=== PATIENT | male | born 1955 | race Caucasian/White ===

== ENCOUNTER 2023-03-26 15:51 | Inpatient (IN) | payer MEDICARE, SELFPAY ==
[2023-03-26] VITALS (12 sets, daily range): BP systolic 119–132; BP diastolic 72–85; PULSE 77–92; RESP 16–28; TEMP 36.6–36.8; O2SAT 71–94; BMI 47.0; BMI 46.7
--- NOTE | 2023-03-26 16:26 | EKG12_ITS ---
Test Reason : DYSRHYTHMIA Blood Pressure : / mmHG Vent. Rate : 077 BPM Atrial Rate : 077 BPM P-R Int : 142 ms QRS Dur : 100 ms QT Int : 410 ms P-R-T Axes : 025 015 043 degrees QTc Int : 463 ms Normal sinus rhythm Normal ECG Confirmed by PAULA KEENAN, JAYLON ([id number]), food editor NATALI DEVLIN ([id number]) on 03/27/2023 9:24:29 AM Referred By: PRASHANT Confirmed By:JAYLON MITCHELL MD
[2023-03-26] MEDS: Ipratropium/Albuterol Sulfate 3 ML AMPUL.NEB INHALATION (16:41)
--- NOTE | 2023-03-26 17:04 | EDS_ITS ---
HPI History of Present Illness Chief Complaint: Shortness of Breath Informant: patient Onset/Context/Timing Onset: Weeks (1) Context: gradual Timing: Waxes and wanes Quality: Positive for Dyspnea on exertion Worsened by: Exertion Relieved by: Rest Associated Symptoms cough and clear sputum; Negative for rhinorrhea, post nasal drip, ear pain, fever, sore throat, subjective, chills or sweats Chest Pain: Positive for None Narrative Narrative: Patient presents with shortness of breath that has been getting worse over the past week. Patient states it is gradually getting worse. Patient states it has been waxing and waning. Patient states it is worse with exertion. Patient states it is better with oxygen. Patient admits to a cough with some slight clear sputum production. Patient denies any fevers or chills. Patient denies any chest pain. Patient does admit to some mild swelling to his legs. PE Risk Factors: Negative for Cancer, OCP + Smoking + > 35, Prior DVT or PE, Recent immobilization, Recent surgery or Recent travel PFSH PFS Medical History HTN (hypertension) Hyperlipidemia Morbid obesity Seizure disorder Snuff user Home Medications phenytoin sodium extended 100 mg capsule (Dilantin Extended) 600 mg PO DINNER 12/23/16 [History Last Taken 12/22/16] atorvastatin 10 mg tablet 10 mg PO DAILY 03/26/23 [History Last Taken Unknown] furosemide 20 mg tablet 20 mg PO QODAY 03/26/23 [History Last Taken Unknown] furosemide 40 mg tablet 40 mg PO QODAY 03/26/23 [History Last Taken Unknown] lisinopril 20 mg-hydrochlorothiazide 25 mg tablet 1 tab PO DAILY 03/26/23 [History Last Taken Unknown] Allergy/AdvReac Type Severity Reaction Status Date / Time No Known Allergies Allergy Verified 12/23/16 19:43 Family History (Updated 03/26/23 @ 21:[address] Jessie Barahona MD) Mother Cancer Father Cancer Surgical History (Updated 03/26/23 @ 21:[address] Jessie Barahona MD) No history of previous surgery Surgical History no surgical history no surgical history Social History (Updated 03/26/23 @ 21:[address] Jessie Barahona MD) household members: none Smoking Status: Never smoker Smokeless tobacco user: snuff and other alcohol intake: never substance use type: does not use ROS ROS ED Constitutional Constitutional ED: Denies chills or fever(s) Eyes Eyes: Denies blurry vision or change in vision ENT ENT ED: Denies rhinorrhea or sore throat Cardiovascular Cardiovascular: Denies chest pain or palpitations Respiratory/Chest Respiratory/Chest: Reports cough, dyspnea and sputum Gastrointestinal Gastrointestinal: Denies nausea or vomiting Genitourinary Genitourinary ED: Denies dysuria or hematuria Musculoskeletal Musculoskeletal: Denies back pain or neck pain Integumentary Denies abscess or rash Neurologic Neurologic: Denies headache(s) or weakness Allergic/Immunologic Allergic/Immunologic ED: Denies mouth swelling or urticaria EXAM Physical Exam Const Vital Signs: 03/26/23 15:52 03/26/23 15:51 03/26/23 16:12 Temperature 97.9 F Temperature Source Temporal Pulse Rate 88 Respiratory Rate 23 H Respiratory Effort Normal Respiratory Depth Normal Respiratory Pattern Tachypnea Blood Pressure 126/75 H Blood Pressure Mean 92 Pulse Ox 71 90 Oxygen Delivery Method Room Air Nasal Cannula Room Air Oxygen Flow Rate (L/min) 3 03/26/23 15:53 03/26/23 16:28 03/26/23 16:51 Temperature 97.9 F Temperature Source Temporal Pulse Rate 88 80 Respiratory Rate 28 H 16 Respiratory Effort Respiratory Depth Respiratory Pattern Blood Pressure 126/75 H Blood Pressure Mean 92 Pulse Ox 94 91 Oxygen Delivery Method Non-Rebreather Venturi Mask Venturi Mask Oxygen Flow Rate (L/min) 03/26/23 16:41 03/26/23 17:00 03/26/23 18:00 Temperature Temperature Source Pulse Rate 92 78 Respiratory Rate 24 H 16 16 Respiratory Effort Respiratory Depth Respiratory Pattern Tachypnea Blood Pressure 119/79 Blood Pressure Mean 92 Pulse Ox 93 Oxygen Delivery Method Venturi Mask Oxygen Flow Rate (L/min) Positive well nourished and well developed General Appearance ED: well developed HEENT Reports moist mucous membranes Neck supple and no JVD Resp normal respiratory effort Auscultation: diminished lung sounds diffuse Cardio regular rate and regular rhythm GI normal to inspection, nondistended, normoactive bowel sounds and non-tender Palpation: soft Extremity normal to inspection General Extremety ED: Yes edema; Negative for tenderness General Extremity: edema bilateral lower extremity Details: mild Neuro oriented x3, CN's II-XII intact bilaterally and no sensory deficits noted Sensorium / Orientation: alert Motor Exam: strength 5/5 throughout Psych mental status grossly normal Skin no rashes or lesions noted MDM MDM MDM Narrative Medical decision making narrative: Differential diagnosis includes pneumonia, pneumothorax, cardiac dysrhythmia, cardiac ischemia, congestive heart failure, COVID-19 infection, influenza infection, and pulmonary embolism. Chest x-ray will be obtained to assess for pneumonia and congestive heart failure. EKG will be obtained to assess for cardiac dysrhythmia and cardiac ischemia. CBC will be obtained to assess for leukocytosis and anemia. Basic metabolic profile will be obtained to assess for electrolyte abnormality and renal function. BNP will be obtained to assess for congestive heart failure. High-sensitivity troponin will be obtained to assess for cardiac ischemia. D-dimer will be obtained to assess for pulmonary embolism. COVID-19 rapid antigen will be obtained to assess for COVID-19 infection. Influenza A and influenza B antigens will be obtained to assess for influenza infection. Lab Data Attestation: I reviewed the patient's lab results. Lab results narrative: CBC was reviewed. There is a mild leukocytosis of 11.8. D-dimer was reviewed and was elevated at 2.11. Basic metabolic profile was reviewed and was essentially within normal limits. High-sensitivity troponin was reviewed and was slightly elevated at 102. BNP was reviewed and was normal at 17.4. COVID- 19 rapid antigen was reviewed and was negative. Influenza A and influenza B antigens were reviewed and were negative. Labs: Laboratory Results - last 24 hr 03/26/23 03/26/23 16:50 18:50 WBC 11.8 H RBC 5.45 Hgb 16.0 Hct 50.2 MCV 92.1 MCH 29.4 MCHC 31.9 L RDW Std Deviation 50.4 H RDW Coeff of Theodore 15.0 H Plt Count 181 MPV 11.0 Immature Gran % (Auto) 1.200 H Neut % (Auto) 74.7 H Lymph % (Auto) 12.7 L Webster % (Auto) 9.6 Eos % (Auto) 1.2 Baso % (Auto) 0.6 Absolute Neuts (auto) 8.8 H Absolute Lymphs (auto) 1.49 Nucleated RBC % 0 D-Dimer Quant (PE/DVT) 2.11 H* Sodium 137 Potassium 3.4 L Chloride 102 Carbon Dioxide 31.0 Anion Gap 4 L BUN 22 H Creatinine 1.07 Estim Creat Clear Calc 70.12 Est GFR (MDRD) Af Amer 89 Est GFR (MDRD) Non-Af 73 BUN/Creatinine Ratio 20.6 H Glucose 141 H Lactic Acid 0.9 Calcium 9.0 Troponin I High Sens 102 H B-Natriuretic Peptide 17.4 Radiography Diagnostic Testing: Clinical Impression(s) from Imaging Studies Chest X-Ray 03/26/23 17:10 IMPRESSION: Possible left lower lobe infiltrate Electronically Signed: Tee Che MD at 17:33 EDT Reading Location ID and State: [facility] / [place] , Service support , Chest CTA 03/26/23 17:45 IMPRESSION: Multiple pulmonary emboli. No right heart failure. Left lower lobe consolidation and bilateral groundglass infiltrates.. Spiculated nodules right middle lobe. Recommend follow-up to resolution. Electronically Signed: Tee Che MD at 18:31 EDT Reading Location ID and State: [facility] / [place] , Service support , ADDENDUM: 03/26/23 1841 IMPRESSION: Multiple pulmonary emboli. No right heart failure. Left lower lobe consolidation and bilateral groundglass infiltrates.. Spiculated nodules right middle lobe. Recommend follow-up to resolution. N.B. : The above Results were Read Back by Tee Che MD to Sp Vasquez, , DO, and understanding confirmed on 03/26/2023 18:34:09 (ET). Electronically Signed: Tee Che MD at 18:31 EDT Reading Location ID and State: [facility] / [place] , Service support , [place] and lateral chest x-ray was obtained. There are 2 views. On my independent interpretation, lung munson show a possible left lower lobe infiltrate there is normal cardiac silhouette. Bony thorax is normal. Radiologist also interpreted the x-ray and agrees. CTA of the chest was obtained because of the elevated D-dimer. There are multiple bilateral pulmonary emboli. There is no evidence of right heart failure. There is also a left lower lobe consolidation and bilateral groundglass infiltrates. There are also spiculated nodules in the right middle lobe. This was interpreted by the radiologist and was also independently reviewed by myself. EKG Initial EKG: Attestation: I personally reviewed and interpreted this EKG as follows: Interpretation: Sinus Rhythm (77) and No Acute Injury Pattern Comments: EKG was obtained. On my independent interpretation, it showed a normal sinus rhythm with a rate of 77. MO interval, QRS interval, and QTc intervals were all normal. [place] was normal. There are no acute ST or T wave changes. Prior EKG tracings: available for review Prior: Unchanged Treatment and Re-Evaluation :: Blood cultures were obtained and are pending. Serum lactate was obtained and is pending. Patient was started on Rocephin and Zithromax. Patient was also started on Eliquis. Patient was advised of the need for hospitalization due to his hypoxia. Patient is agreeable with this. Case will be discussed with the hospitalist for admission. Critical Care Time Critical Care Time: Yes Critical care time (excluding procedures): 30-74 minutes (32), Including time spent:, Discussing w/Patient &/or Family/Research Program Internship, Discussing w/Consultants, Arranging Admission or Transfer and Performing Direct Patient Care at Bedside Discharge Plan Dx/Rx/DC Orders Clinical Impression: Hypoxia, Pulmonary emboli, Pneumonia Disposition Disposition: Acute Care [facility]
--- NOTE | 2023-03-26 17:10 | RAD_ITS ---
STUDY: X-RAY CHEST REASON FOR EXAM: Male, 67 years old. Dyspnea TECHNIQUE: Frontal and lateral views of the chest. COMPARISON: December 23, 2016 FINDINGS: Elevated left hemidiaphragm. Possible left basilar infiltrate. The lungs are clear and expanded. There is no demonstrated pleural abnormality. Normal size heart. Normal mediastinum and abdoul. Normal visualized pulmonary arteries. Normal visualized aortic arch and descending thoracic aorta. Normal visualized thoracic spine. Normal visualized ribs, clavicles, and shoulders. There is no demonstrated abnormality of the visualized soft tissue structures of the upper abdomen. RAD/Chest PA and Lateral IMPRESSION: Possible left lower lobe infiltrate Electronically Signed: Tee Che MD at 17:33 EDT ,
[2023-03-26 17:12] LABS: Absolute Lymphocyte Count 1.49 X10^3/uL (0.83-4.51); Absolute Neutrophil Count 8.8 X10^3/uL (2.0-7.7); Basophil# 0.07 X10^3/uL; Basophil% 0.6 % (0-1); Eosinophil# 0.14 X10^3/uL; Eosinophils% 1.2 % (0-5); Hematocrit 50.2 % (40-54); Lymphocyte # 1.49 X10^3/ul (0.83-4.51); Lymphocyte % 12.7 % (19-41); Mean Corp Hgb Conc 31.9 g/dL (32-36); Mean Corpuscular Hgb 29.4 pg (27.0-32.0); Mean Corpuscular Volume 92.1 fL (80-94); Monocyte# 1.13 X10^3/uL; Monocyte% 9.6 % (0-10); NRBC Flagged by Analyzer 0 % (0-5); Neutrophil # 8.79 X10^3/uL (2.7-7.7); Neutrophil % 74.7 % (47-70); Platelet Count 181 K/mm3 (150-450); RBC Distribution Width SD 50.4 fl (35.1-43.9); Red Blood Count 5.45 M/mm3 (4.6-6.2); White Blood Count 11.8 K/mm3 (4.4-11.0)
[2023-03-26 17:19] LABS: D-Dimer Quantitative (DVT/PE) 2.11 FEU/ug/m (0.27-0.49)
[2023-03-26 17:28] LABS: Anion Gap 4 (5-15); BUN 22 mg/dL (7-18); BUN/Creat Ratio 20.6 RATIO (10-20); Chloride 102 mmol/L (98-107); Creatinine, Serum 1.07 mg/dL (0.70-1.30); EST Glomerular Filtration Rate 73 mL/min (>60); Est Glom Filt Rate - Afr Amer 89 mL/min (>60); Estimated Creatinine Clearance 70.12 ml/min; Glucose 141 mg/dL (74-106); Potassium 3.4 mmol/L (3.5-5.1); Sodium Level 137 mmol/L (136-145); Troponin-I HS 102 pg/mL (3.0-78.0)
[2023-03-26 17:43] LABS: BNP,B-Type NATRIURETIC PEPTIDE 17.4 pg/mL (0-100)
--- NOTE | 2023-03-26 17:45 | CT_ITS ---
We are attempting to reach an attending provider to discuss findings. An addendum with communication details will be sent when the communication is complete. STUDY: CTA CHEST REASON FOR EXAM: Male, 67 years old. Elevated D-dimer RADIATION DOSAGE (If Supplied By Facility): CTDIvol = ( 19.79 ) mGy, DLP = ( 586.16 ) mGycm TECHNIQUE: The examination was performed with the intravenous administration of IV 100mL [id number]-370. Post-processing of the angiographic images was performed, with multiplanar reformation and 3D reconstruction. Individualized dose optimization techniques were used for this CT. COMPARISON: Chest x-ray from today.. FINDINGS: Occlusive filling defects right lower lobar and segmental branches of the pulmonary arteries. Filling defects also noted in the right middle lobar and segmental branches. Filling defects within the lingular segmental branches. Normal enhancement of the bilateral peripheral pulmonary arteries. No evidence of right ventricular strain. Normal thoracic aorta and visualized great vessels. There is no demonstrated aortic dissection. Normal heart and pericardium. Normal mediastinum. Normal hilar regions. Normal visualized trachea and bronchi. Left lower lobe consolidation. Mild bilateral groundglass interstitial infiltrates. Spiculated multinodular lesion right middle lobe measuring up to 9 mm on image #[id number]. Normal pulmonary parenchyma. Normal pleura. Normal chest wall structures. Normal osseous structures. Normal visualized upper abdomen. CT/CTA Chest W/WO Contrast IMPRESSION: Multiple pulmonary emboli. No right heart failure. Left lower lobe consolidation and bilateral groundglass infiltrates.. Spiculated nodules right middle lobe. Recommend follow-up to resolution. Electronically Signed: Tee Che MD at 18:31 EDT ,
[2023-03-26] MEDS: APIXABAN 5 MG TABLET 10 MG PO ×2 (18:59→23:15)
[2023-03-26 19:25] LABS: Lactic Acid 0.9 mmol/L (0.4-1.9)
--- NOTE | 2023-03-26 19:37 | PCM.HP.STD ---
HPI - General General Date of Admission: 03/26/23 Date of Service: 03/26/23 Chief Complaint: Dyspnea, cough, worsening. HPI Narrative The patient is a 67 y/o M w/ PMHx: Morbid obesity, Seizure disorder, HTN, HLD, Chronic snuff usage who presents to the [facility] ED on 03/26/23 with history of persistently worsening shortness of breath over the last week although has been waxing and waning, worse with exertion and exposure to the heat, improved with oxygen supplementation with a cough productive of some white clear sputum with no fevers or chills with mild lower extremity swellings but no specific pleuritic pain or chest pain however given worsening prompted eventual ED evaluation. He denies any recent ill contacts. He was vaccinated with the Moderna COVID series but not boosters although he reports when he was vaccinated he did not have any side effects and mounted no fever. He states aside from his dyspnea he really has not been feeling poorly. He states he is extremely active. He denies any marked snoring, gasping for air or periods of apnea while sleeping. Work-up in the ED included T97.9, heart rate 88, BP 126/75, respiratory rate 23, initially 71% on room air transition to a nonrebreather initially 94% on nonrebreather currently on a Ventimask noted to be 91%, CBC with WC 11.8, hemoglobin 16, platelet 181 with left shift, D-dimer 2.11, BMP with potassium 3.4, BUN/creatinine 22/1.07, glucose 141, troponin 102, BNP 17.4, rapid SARS COVID and influenza antigens negative, blood culture x2 pending per ED, chest x-ray with possible left lower lobe infiltrate, CTA chest with multiple pulmonary emboli with no evidence of right heart failure with a left lower lobe consolidation and bilateral groundglass infiltrates, spiculated nodules in the right middle lobe, EKG sinus rhythm with nonspecific changes with no acute evidence of ischemia. In the ED patient ministered DuoNeb therapy, apixaban 10 mg p.o. x1, Rocephin IV as well as azithromycin IV. [facility] Medical History HTN (hypertension) Hyperlipidemia Morbid obesity Seizure disorder Snuff user Home Medications phenytoin sodium extended 100 mg capsule (Dilantin Extended) 600 mg PO DINNER 12/23/16 [History Last Taken 12/22/16] atorvastatin 10 mg tablet 10 mg PO DAILY 03/26/23 [History Last Taken Unknown] furosemide 20 mg tablet 20 mg PO QODAY 03/26/23 [History Last Taken Unknown] furosemide 40 mg tablet 40 mg PO QODAY 03/26/23 [History Last Taken Unknown] lisinopril 20 mg-hydrochlorothiazide 25 mg tablet 1 tab PO DAILY 03/26/23 [History Last Taken Unknown] Allergy/AdvReac Type Severity Reaction Status Date / Time No Known Allergies Allergy Verified 12/23/16 19:43 Family History (Updated 03/26/23 @ 21:[address] Jessie Barahona MD) Mother Cancer Father Cancer Surgical History (Updated 03/26/23 @ 21:[address] Jessie Barahona MD) No history of previous surgery Surgical History no surgical history Social History (Updated 03/26/23 @ 21:[address] Jessie Barahona MD) household members: none Smoking Status: Never smoker Smokeless tobacco user: snuff and other alcohol intake: never substance use type: does not use ROS ROS Narrative Admission Review of Systems: CONSTITUTIONAL: No weight loss, fever, chills, + weakness or fatigue. HEENT: Eyes: No visual loss, blurred vision, double vision or yellow sclerae. Ears, Nose, Throat: No hearing loss, sneezing, congestion, runny nose or sore throat. SKIN: No rash or itching, lesions, wounds. CARDIOVASCULAR: No chest pain, chest pressure or chest discomfort, palpitations, edema, orthopnea, syncopal events. RESPIRATORY: + shortness of breath, cough without marked sputum. No wheezing, hemoptysis. GASTROINTESTINAL: + anorexia. No nausea, vomiting or diarrhea, abdominal pain, melena, BRBPR. GENITOURINARY: No dysuria, frequency, urgency or retention. NEUROLOGICAL: + History of seizure disorder. No headache, dizziness, syncope, paralysis, ataxia, numbness or tingling in the extremities, focal weakness, change in bowel or bladder control. MUSCULOSKELETAL: + muscle, back pain, joint pain or stiffness. HEMATOLOGIC: No anemia, bleeding or bruising. LYMPHATICS: No enlarged nodes. No history of splenectomy. PSYCHIATRIC: No history of depression or anxiety. ENDOCRINOLOGIC: No reports of sweating, cold or heat intolerance. No polyuria or polydipsia. ALLERGIES: No history of asthma, hives, eczema or rhinitis. Vital Signs Vital Signs Vital Signs: 03/26/23 15:52 03/26/23 15:51 03/26/23 16:12 Temperature 97.9 F Temperature Source Temporal Pulse Rate 88 Respiratory Rate 23 H Respiratory Effort Normal Respiratory Depth Normal Respiratory Pattern Tachypnea Blood Pressure 126/75 H Blood Pressure Mean 92 Pulse Ox 71 90 Oxygen Delivery Method Room Air Nasal Cannula Room Air Oxygen Flow Rate (L/min) 3 03/26/23 15:53 03/26/23 16:28 03/26/23 16:51 Temperature 97.9 F Temperature Source Temporal Pulse Rate 88 80 Respiratory Rate 28 H 16 Respiratory Effort Respiratory Depth Respiratory Pattern Blood Pressure 126/75 H Blood Pressure Mean 92 Pulse Ox 94 91 Oxygen Delivery Method Non-Rebreather Venturi Mask Venturi Mask Oxygen Flow Rate (L/min) 03/26/23 16:41 03/26/23 17:00 03/26/23 18:00 Temperature Temperature Source Pulse Rate 92 78 Respiratory Rate 24 H 16 16 Respiratory Effort Respiratory Depth Respiratory Pattern Tachypnea Blood Pressure 119/79 Blood Pressure Mean 92 Pulse Ox 93 Oxygen Delivery Method Venturi Mask Oxygen Flow Rate (L/min) Weight Weight: 327 lb 8 oz Body Mass Index (BMI) 47.0 Physical Exam Narrative Physical Examination: General: Awake, alert, oriented x 3 and cooperative, seated upright in ED bed in no apparent distress despite having low oxygenation on a Ventimask, appears comfortable. Skin: Normal color, normal turgor, no icterus, no cyanosis except occasional staged ecchymoses/abrasion. HEENT: AT/NC, EOMI, PERRLA, moderately dry MM, Ventimask in place, no carotid bruits, difficult to assess JVD secondary to very thickened neck Lungs: Extremely diminished, greater bases, appropriate effort, no evidence of any respiratory distress, no rales, ronchi or wheezing. Heart: Currently regular rate and rhythm; no gallop, rub audible. Abdomen: Soft, morbidly obese, NTTP, difficult to assess distention given habitus but patient denies, mildly hyperactive BS, difficult to assess HSM given habitus. Extremities: No cyanosis, no clubbing, very minimal ankle nonpitting edema. Neurological: Patient awake, alert, oriented as noted, cognitive function intact; pupils equally reactive to light and accommodation, cranial nerves II-XII grossly normal, moving all 4 extremities, no focal deficits, strength moderately to severely globally decreased secondary to acute presentation Psychiatric: Affect appears flat, fatigued, initially mildly irritable but improved through evaluation, no acute evidence of depressive or anxiety feelings. Results Lab / Micro Data 03/26/23 16:50 03/26/23 16:50 Labs: Laboratory Results - last 24 hr 03/26/23 16:50: WBC 11.8 H, RBC 5.45, Hgb 16.0, Hct 50.2, MCV 92.1, MCH 29.4, MCHC 31.9 L, RDW Std Deviation 50.4 H, RDW Coeff of Theodore 15.0 H, Plt Count 181, MPV 11.0, Immature Gran % (Auto) 1.200 H, Neut % (Auto) 74.7 H, Lymph % (Auto) 12.7 L, Mercer % (Auto) 9.6, Eos % (Auto) 1.2, Baso % (Auto) 0.6, Absolute Neuts (auto) 8.8 H, Absolute Lymphs (auto) 1.49, Nucleated RBC % 0, D-Dimer Quant (PE/DVT) 2.11 H*, Sodium 137, Potassium 3.4 L, Chloride 102, Carbon Dioxide 31.0, Anion Gap 4 L, BUN 22 H, Creatinine 1.07, Estim Creat Clear Calc 70.12, Est GFR (MDRD) Af Amer 89, Est GFR (MDRD) Non-Af 73, BUN/Creatinine Ratio 20.6 H, Glucose 141 H, Calcium 9.0, Troponin I High Sens 102 H, B-Natriuretic Peptide 17.4 03/26/23 18:50: Lactic Acid 0.9 Micro: Microbiology 03/26/23 16:55 Nasal Secretion SARS-CoV-2 & FLU Antigen (Rapid) - Final Radiology Impression Chest X-Ray 03/26/23 17:10 IMPRESSION: Possible left lower lobe infiltrate Electronically Signed: Tee Che MD at 17:33 EDT , Chest CTA 03/26/23 17:45 IMPRESSION: Multiple pulmonary emboli. No right heart failure. Left lower lobe consolidation and bilateral groundglass infiltrates.. Spiculated nodules right middle lobe. Recommend follow-up to resolution. Electronically Signed: Tee Che MD at 18:31 EDT Reading Location ID and State: [address] [place] [address] , Service support , ADDENDUM: 03/26/23 1841 IMPRESSION: Multiple pulmonary emboli. No right heart failure. Left lower lobe consolidation and bilateral groundglass infiltrates.. Spiculated nodules right middle lobe. Recommend follow-up to resolution. N.B. : The above Results were Read Back by Tee Che MD to Sp Vasquez DO, DO, and understanding confirmed on 03/26/2023 18:34:09 (ET). Electronically Signed: Tee Che MD at 18:31 EDT Reading Location ID and State: [facility] / [place] , Service support , Assessment & Plan Assessment/Plan (1) Pneumonia: PLAN: Plan The patient is a 67 y/o M w/ PMHx: Morbid obesity, Seizure disorder, HTN, HLD, Chronic snuff usage who presents to the [facility] ED on 03/26/23 with history of persistently worsening shortness of breath over the last week although has been waxing and waning, worse with exertion and exposure to the heat, improved with oxygen supplementation with a cough productive of some white clear sputum with no fevers or chills with mild lower extremity swellings but no specific pleuritic pain or chest pain however given worsening prompted eventual ED evaluation. He denies any recent ill contacts. #1. Acute hypoxic respiratory failure, multifactorial secondary to left lower lobe consolidation and bilateral groundglass infiltrates/pneumonia as well as concurrent bilateral pulmonary emboli as noted #2: Will admit to PCU, maintain on oxygen with wean as tolerated to room air, continue ATC duonebs, PRN albuterol, maintained on IV Azithromycin and IV Rocephin, HOB, IS parameters w/ pending sputum cultures, full respiratory viral panel, COVID PCR and urine antigens. Bld cx x 2 obtained in the ED. #2. Dyspnea, chest pain secondary to Pulmonary Embolism in addition to #1: We will maintain on cardiac telemetry. Will obtain ECHO although no marked cardiac strain noted however significant presentation and troponin is elevated although BNP is normal., BNP and BL LE DVT US. In the setting of acute infection #1, full respiratory viral panel as well as COVID PCR requested as there has been an increase in COVID diagnosis recently and certainly this could lead to bilateral pulmonary emboli. Given already dosed oral apixaban in the ED will continue at this time. Patient is of note is on phenytoin, has a level 2 interaction and can decrease the effectiveness of anticoagulation, thus will need to continue with this in mind. #3. Indeterminate cardiac enzyme, likely stress response with acute hypoxia as noted: EKG in ED sinus rhythm with nonspecific changes with no evidence of ischemia, initial trop 102. Will place on a monitored bed to assure no acute myocardial infarction with serial cardiac enzymes and EKGs. Echocardiogram requested to be cautious. Magnesium level requested. FLP in AM. ASA, NG, morphine. #4. Incidental spiculated nodule right middle lobe: Patient with notable spiculated nodule in the right lower lobe measuring 9 mm, noted to be multinodular, will need to follow-up with pulmonary medicine and further evaluation. #5. Hypokalemia: Admission K+ 3.4, magnesium level requested, supplementation given, repeat level in AM. #6. Hyperglycemia: Likely stress response however given acute presentation to be cautious and medical history will obtain hemoglobin A1c and maintain on Accu-Cheks with insulin sliding scale if notable with transition to ADA diet. #7. Seizure disorder: We will continue patient home phenytoin regimen, level requested to be cautious. #8. Hypertension: Continue home regimen including Lasix, lisinopril, hydrochlorothiazide although will transition doses to tomorrow and attempt to aggressively hydrate given acute infectious presentation and low threshold to hold these further as needed, PRN hydralazine. #9. Hyperlipidemia: We will continue patient on statin therapy. #10. Chronic snuff tobacco usage: Encourage snuff tobacco cessation, RT consultation pending, NR supplementation if requested. #11. Morbid Obesity: Weight loss and lifestyle changes encouraged. #12. DVT prophylaxis: Patient already administered oral apixaban in the ED, will continue however will need to ascertain cost prior to discharge to home to be safe. #13. CODE status: Discussed CODE status at length including difference between FULL code, DNR-CCA and DNR-CC status. Following discussions about the differences in these status, requested Full Code status. Charges/Coding Visit Charges Inpatient E&M: 48639 Init Hosp L3
[2023-03-26 20:18] LABS: Allen Test Positive; Base Excess 7 mmol/L (-2 to +2); Bicarbonate 31.3 mmol/L (22-26); Blood Gas Specimen Type ART; FI02 50; O2 Delivery Device Venti Mask; PO2 62 mmHG (75-100); SITE R Radial; SO2 92 % (95-99); Total Carbon Dioxide 33 mmol/L; pH 7.44 (7.35-7.45)
--- NOTE | 2023-03-26 21:47 | ECHOCS_ITS ---
Reason For Study: ELEVATED TROPONIN Procedure This was a 2D Doppler, Color Flow transthoracic echocardiogram. The study was technically difficult. Exam performed portable in patient room. Left Ventricle Normal LV size. Left ventricular systolic function is normal. The left ventricular ejection fraction is 55 %. Stage 1 diastolic dysfunction. Tricuspid Valve Normal tricuspid valve. Mild (1+) eccentric tricuspid valve insufficiency. Pulmonary artery systolic pressure is 32 mmHg. Pericardium/Pleural No pericardial effusion. Medication Diluted definity 2ml given slow IV push to enhance endocardial definition. MMode/2D Measurements & Calculations RVDd: 3.8 cm Ao root diam: 3.4 cm LAV(MOD-bp): 45.7 ml LAV(MOD-bp) Indexed: 17.9 ml/m2 LAV(MOD-sp2): 47.6 ml LAV(MOD-sp4): 41.7 ml LVAd ap4: 27.1 cm2 SV(MOD-sp4): 46.4 ml SV(sp4-el): 48.4 ml LVLd ap4: 7.8 cm EDV(MOD-sp4): 76.2 ml EDV(sp4-el): 79.6 ml LVAs ap4: 15.3 cm2 LVLs ap4: 6.4 cm ESV(MOD-sp4): 29.8 ml ESV(sp4-el): 31.2 ml EF(MOD-sp4): 60.9 % EF(sp4-el): 60.8 % LA dimension(2D): 3.2 cm LA A4 area: 17.5 cm2 RA A4 area: 17.1 cm2 Time Measurements MV dec time: 0.34 sec Doppler Measurements & Calculations MV E max russel: 65.8 cm/sec Lat Peak E' Russel: 12.8 cm/sec Med Peak E' Russel: 10.0 cm/sec MV A max russel: 80.1 cm/sec E/E' lat: 5.1 E/E' med: 6.6 MV E/A: 0.82 Ao V2 max: 102.5 cm/sec LV V1 max: 118.3 cm/sec PA V2 max: 70.3 cm/sec Ao max P.2 mmHg LV V1 max P.6 mmHg TR max russel: 264.8 cm/sec TR max P.1 mmHg ECHO/Echo Complete W/ Contrast Interpretation Summary Normal LV size. Left ventricular systolic function is normal. The left ventricular ejection fraction is 55 %. Stage 1 diastolic dysfunction. The study was technically limited. The study was technically difficult. Limited views were obtained. Contrast injection was performed. Ordering Physician: Jessie Barahona Referring Physician: NORA TOUSSAINT Performed By: Mayra Capellan RDCS
[2023-03-26] MEDS: 0.9% Normal Saline 1,000 ML 100 ML IV (22:50)
[2023-03-26] MEDS: 0.9% Saline Lock 10 ML Syringe IV (22:51)
[2023-03-26 22:58] LABS: Magnesium 2.1 mg/dL (1.6-2.6)
[2023-03-26 23:04] LABS: Phenytoin (Dilantin) Level 16.1 mL (10.0-20.0)
[2023-03-26 23:16] LABS: Troponin-I HS 182 pg/mL (3.0-78.0)
[2023-03-26] MEDS: Potassium Chloride Oral Tablet 20 MEQ 40 MEQ PO (23:16)
[2023-03-26] MEDS: Pantoprazole Sodium 20 MG Tablet PO (23:16)
[2023-03-26 23:23] LABS: Procalcitonin < 0.04 ng/mL (0.00-0.09)
[2023-03-27] VITALS (10 sets, daily range): BP systolic 120–135; BP diastolic 63–98; PULSE 72–88; RESP 16–22; TEMP 36.4–36.9; O2SAT 92–94; BMI 46.7
[2023-03-27 01:01] LABS: Troponin-I HS 153 pg/mL (3.0-78.0)
[2023-03-27 02:08] LABS: M R Staph aureus DNA By PCR Negative (Negative); Probe Check PASS; Specimen Processing Control PASS
[2023-03-27 06:18] LABS: Absolute Lymphocyte Count 2.04 X10^3/uL (0.83-4.51); Basophil# 0.05 X10^3/uL; Basophil% 0.4 % (0-1); Eosinophil# 0.13 X10^3/uL; Eosinophils% 1.1 % (0-5); Hematocrit 47.8 % (40-54); Hemoglobin 15.7 g/dL (13.0-16.5); Lymphocyte # 2.04 X10^3/ul (0.83-4.51); Lymphocyte % 17.8 % (19-41); Mean Corp Hgb Conc 32.8 g/dL (32-36); Mean Corpuscular Hgb 30.7 pg (27.0-32.0); Mean Corpuscular Volume 93.5 fL (80-94); Mean Platelet Vol. 11.3 fl (6.2-12.0); Monocyte# 1.18 X10^3/uL; Monocyte% 10.3 % (0-10); NRBC Flagged by Analyzer 0 % (0-5); Neutrophil # 7.95 X10^3/uL (2.7-7.7); Neutrophil % 69.4 % (47-70); Platelet Count 165 K/mm3 (150-450); RBC Distribution Width CV 15.1 % (11.6-14.6); RBC Distribution Width SD 51.7 fl (35.1-43.9); Red Blood Count 5.11 M/mm3 (4.6-6.2); White Blood Count 11.5 K/mm3 (4.4-11.0)
[2023-03-27 06:42] LABS: Troponin-I HS 105 pg/mL (3.0-78.0)
[2023-03-27] MEDS: 0.9% Normal Saline 1,000 ML 100 ML IV ×2 (07:00→18:12)
[2023-03-27 07:17] LABS: ALB/GLOB Ratio 0.8 RATIO (0.9-2.4); AST(SGOT) 14 U/L (15-37); Alanine Aminotransfer ALT/SGPT 8 U/L (16-61); Albumin, Serum 3.1 g/dL (3.2-5.0); Alkaline Phosphatase 109 U/L (45-117); Anion Gap 5 (5-15); BUN 16 mg/dL (7-18); BUN/Creat Ratio 17.8 RATIO (10-20); Calcium,Total 8.5 mg/dL (8.5-10.1); Chloride 103 mmol/L (98-107); Cholesterol 149 mg/dL (200); EST Glomerular Filtration Rate 90 mL/min (>60); Est Glom Filt Rate - Afr Amer 109 mL/min (>60); Estimated Creatinine Clearance 83.36 ml/min; Glucose 97 mg/dL (74-106); High Density Lipoprotein 64 mg/dL; Potassium 3.9 mmol/L (3.5-5.1); Protein, Total 7.1 g/dL (6.4-8.2); Sodium Level 137 mmol/L (136-145); Triglycerides 102 mg/dL; Very Low Density Lipoprotein 20 mg/dL (5-40)
[2023-03-27] MEDS: Ipratropium/Albuterol Sulfate 3 ML AMPUL.NEB INHALATION ×4 (07:23→19:37)
[2023-03-27 07:46] LABS: Hemoglobin A1c 5.9 % (3.8-5.6)
--- NOTE | 2023-03-27 08:28 | PCM.PN.HOSP ---
Reason for Visit Reason for Visit: Diagnoses Pneumonia, unspecified organism (03/26/23) Subjective Subjective Follow-up for bilateral PE, pneumonia leading to acute hypoxic respiratory failure Objective Data Objective Data Vital Signs: Vital Signs Temp Pulse Resp BP Pulse Ox O2 Del Method O2 Flow Rate 98.2 F 72 18 120/85 H 94 Venturi Mask 14 03/27/23 04:08 03/27/23 04:08 03/27/23 04:08 03/27/23 04:08 03/27/23 04:08 03/27/23 04:08 03/27/23 04:08 FiO2 50 03/27/23 00:45 Oxygen Flow Rate (L/min) 14 Oxygen Delivery Method Venturi Mask Weight: 325 lb 9.964 oz Body Mass Index (BMI) 46.7 Intake & Output: Intake and Output for Last 24 Hours 03/25/23 03/26/23 03/27/23 23:59 23:59 23:59 Intake Total 525 / 525 220 / 220 Output Total 200 / 200 Balance 325 / 325 220 / 220 Lab / Micro Data 03/27/23 04:50 03/27/23 04:50 Labs: Laboratory Results - last 24 hr 03/26/23 16:50: WBC 11.8 H, RBC 5.45, Hgb 16.0, Hct 50.2, MCV 92.1, MCH 29.4, MCHC 31.9 L, RDW Std Deviation 50.4 H, RDW Coeff of Theodore 15.0 H, Plt Count 181, MPV 11.0, Immature Gran % (Auto) 1.200 H, Neut % (Auto) 74.7 H, Lymph % (Auto) 12.7 L, Lar[place] % (Auto) 9.6, Eos % (Auto) 1.2, Baso % (Auto) 0.6, Absolute Neuts (auto) 8.8 H, Absolute Lymphs (auto) 1.49, Nucleated RBC % 0, D-Dimer Quant (PE/DVT) 2.11 H*, Sodium 137, Potassium 3.4 L, Chloride 102, Carbon Dioxide 31.0, Anion Gap 4 L, BUN 22 H, Creatinine 1.07, Estim Creat Clear Calc 70.12, Est GFR (MDRD) Af Amer 89, Est GFR (MDRD) Non-Af 73, BUN/Creatinine Ratio 20.6 H, Glucose 141 H, Calcium 9.0, Troponin I High Sens 102 H, B-Natriuretic Peptide 17.4 03/26/23 18:50: Lactic Acid 0.9 03/26/23 22:27: Magnesium 2.1, Troponin I High Sens 182 H*, Procalcitonin < 0.04, Phenytoin 16.1 03/26/23 23:11: MRSA (PCR) Negative 03/27/23 00:35: Troponin I High Sens 153 H* 03/27/23 04:50: WBC 11.5 H, RBC 5.11, Hgb 15.7, Hct 47.8, MCV 93.5, MCH 30.7, MCHC 32.8, RDW Std Deviation 51.7 H, RDW Coeff of Theodore 15.1 H, Plt Count 165, MPV 11.3, Immature Gran % (Auto) 1.000 H, Neut % (Auto) 69.4, Lymph % (Auto) 17.8 L, Larue % (Auto) 10.3 H, Eos % (Auto) 1.1, Baso % (Auto) 0.4, Absolute Neuts (auto) 8.0 H, Absolute Lymphs (auto) 2.04, Nucleated RBC % 0, Sodium 137, Potassium 3.9, Chloride 103, Carbon Dioxide 29.0, Anion Gap 5, BUN 16, Creatinine 0.90, Estim Creat Clear Calc 83.36, Est GFR (MDRD) Af Amer 109, Est GFR (MDRD) Non-Af 90, BUN/Creatinine Ratio 17.8, Glucose 97, Hemoglobin A1c 5.9 H, Calcium 8.5, Total Bilirubin 0.30, AST 14 L, ALT 8 L, Alkaline Phosphatase 109, Troponin I High Sens 105 H, Total Protein 7.1, Albumin 3.1 L, Globulin 4.0, Albumin/Globulin Ratio 0.8 L, Triglycerides 102, Cholesterol 149, LDL Cholesterol 65, VLDL Cholesterol 20, HDL Cholesterol 64 Micro: Microbiology 03/27/23 00:45 Mucosa - Nasopharyngeal Respiratory Panel (PCR) - Final 03/27/23 00:45 Mucosa - Nasopharyngeal Coronavirus COVID-19 PCR - Final 03/27/23 01:46 Urine, Clean Catch Legionella Antigen - Final 03/27/23 01:46 Urine, Clean Catch Streptococcus pneumoniae Antigen (M - Final 03/26/23 16:55 Nasal Secretion SARS-CoV-2 & FLU Antigen (Rapid) - Final ABG Data ABG results: ABG 03/26/23 20:14 Specimen Type ART Sample Site R Radial pH 7.44 Bicarbonate Actual 31.3 H Total CO2 33 Base Excess 7 H O2 Saturation 92 L O2 % 50 ABG pCO2 46.0 H ABG pO2 62 L Prabhu Test Positive O2 Delivery Device Venti Mask Radiography Diagnostic Testing: Radiology Impression Chest X-Ray 03/26/23 17:10 IMPRESSION: Possible left lower lobe infiltrate Electronically Signed: Tee Che MD at 17:33 EDT Reading Location ID and State: [facility] / [place] , Service support , Chest CTA 03/26/23 17:45 IMPRESSION: Multiple pulmonary emboli. No right heart failure. Left lower lobe consolidation and bilateral groundglass infiltrates.. Spiculated nodules right middle lobe. Recommend follow-up to resolution. Electronically Signed: Tee Che MD at 18:31 EDT Reading Location ID and State: [facility] / [place] , Service support , ADDENDUM: 03/26/23 1841 IMPRESSION: Multiple pulmonary emboli. No right heart failure. Left lower lobe consolidation and bilateral groundglass infiltrates.. Spiculated nodules right middle lobe. Recommend follow-up to resolution. N.B. : The above Results were Read Back by Tee Ceh MD to Sp Vasquez DO, DO, and understanding confirmed on 03/26/2023 18:34:09 (ET). Electronically Signed: Tee Che MD at 18:31 EDT Reading Location ID and State: [id number] / [place] , Service support , Physical Exam Narrative Seen and examined. History taken from the patient and patient's daughter near the bedside. Patient has history of chewing tobacco but denies a smoking cigarettes. Shortness of breath is better although patient is still on Ventimask. Denies chest pain/tightness or pressure. Denies chronic heart disease or lung disease. No fever. Physical exam General: Alert, Oriented x3, Cooperative, morbid obesity BMI 46.7 kg/m?. HEENT: Atraumatic, PERRLA, EOMI, Normocephalic Oral: Deep pharyngeal structures could not be visualized. No Gingival or Mucosal Lesions/ Ulcerations Neck: Supple, No JVD, Negative Carotid Bruits Lungs: Air entry diminished in bilateral lung bases. No crepitation/rhonchi Cardiovascular: Regular rate, Regular Rhythm, Normal S1, Normal S2, No murmurs Abdomen: Bowel Sounds Present, Soft, Non Tender, Non-Distended : No dysuria or new lower urinary tract symptoms. No renal angle tenderness. No suprapubic tenderness. Extremities: Bilateral 2+ pitting edema, Capillary Refill Less than 3 Seconds Skin: No rashes, No breakdown Musculoskeletal: No Tenderness to Palpation of Joints or Extremities Neurological: Cranial nerves II-XII grossly intact, DTR 2+/4 and Symmetrical, Neuro grossly intact Psych/Mental Status: Normal Affect, Appropriate. Assessment & Plan Assessment/Plan (1) Pneumonia: PLAN: Plan The patient is a 67 y/o M is admitted for shortness of breath intermittently been progressive worsening for 1 week. No fevers chills chest pain. Mild lower extremity swelling. #1. Acute hypoxic respiratory failure, multifactorial due to left lower lobe consolidation/pneumonia, bilateral groundglass interstitial infiltrate and bilateral PE patient is admitted in PCU. On IV ceftriaxone and azithromycin. On DuoNeb scheduled, incentive spirometry and Pep. Pneumonia work-up ordered to ED. Respiratory panel, COVID-[address] chest shows left lower lobe consolidation, mild bilateral groundglass interstitial infiltrates in the spiculated multinodular lesion right middle lobe measuring up to 9 mm. Normal pleura. #2. Bilateral pulmonary embolism involving right middle lobe, right lower lobe and their segmental branches, lingular segmental branches: CTA shows normal enhancement of bilateral peripheral pulmonary arteries and no evidence of right ventricular strain. Patient is started on apixaban. Patient on phenytoin which has level 2 interaction can decrease effectiveness of anticoagulants because of strong CYP 3 A4 inducer and P-gp. Discuss with technology integration specialist. #3. Elevated troponin most likely small myocardial injury due to increased cardiac demand and hypoxia: Patient does not have chest pain. First 1 was 102. Downward trends of troponin from 180-105. Patient does not have chest pain or pressure. EKG shows sinus rhythm with nonspecific changes. 2D echo requested. Serum magnesium normal 2.1. Patient on baby aspirin, statin and lisinopril. Fasting profile shows LDL 65, HDL 64. Total cholesterol 149 all in normal range. #4. Incidental spiculated nodule right middle lobe: Patient with notable spiculated nodule in the right lower lobe measuring 9 mm, noted to be multinodular, will need to follow-up with pulmonary medicine and further evaluation. #5. Hypokalemia: Admission K+ 3.4, repeat potassium 3.9. #6. Hyperglycemia: A1c 5.9% suggestive of prediabetes #7. Seizure disorder: continue patient home phenytoin regimen, level requested to be cautious. #8. Hypertension: Continue home regimen including Lasix, lisinopril, hydrochlorothiazide although will transition doses to tomorrow and attempt to aggressively hydrate given acute infectious presentation and low threshold to hold these further as needed, PRN hydralazine. #9. Hyperlipidemia: continue patient on statin therapy. #10. Chronic snuff tobacco usage: Encourage snuff tobacco cessation, RT consultation pending, NR supplementation if requested. #11. Morbid Obesity: Weight loss and lifestyle changes encouraged. #12. DVT prophylaxis: Patient already administered oral apixaban in the ED, will continue however will need to ascertain cost prior to discharge to home to be safe. #13. CODE status: Discussed CODE status at length including difference between FULL code, DNR-CCA and DNR-CC status. Following discussions about the differences in these status, requested Full Code status. Clinical Impression(s) from Imaging Studies Chest X-Ray 03/26/23 17:10 IMPRESSION: Possible left lower lobe infiltrate Chest CTA 03/26/23 17:45 IMPRESSION: Multiple pulmonary emboli. No right heart failure. Left lower lobe consolidation and bilateral groundglass infiltrates.. Spiculated nodules right middle lobe. Recommend follow-up to resolution. Microbiology Past 72 Hours 03/27/23 00:45 Mucosa - Nasopharyngeal Respiratory Panel (PCR) - Final 03/27/23 00:45 Mucosa - Nasopharyngeal Coronavirus COVID-19 PCR - Final 03/27/23 01:46 Urine, Clean Catch Legionella Antigen - Final 03/27/23 01:46 Urine, Clean Catch Streptococcus pneumoniae Antigen (M - Final 03/26/23 16:55 Nasal Secretion SARS-CoV-2 & FLU Antigen (Rapid) - Final Laboratory Results 03/26/23 16:50: WBC 11.8 H, RBC 5.45, Hgb 16.0, Hct 50.2, MCV 92.1, MCH 29.4, MCHC 31.9 L, RDW Std Deviation 50.4 H, RDW Coeff of Theodore 15.0 H, Plt Count 181, MPV 11.0, Immature Gran % (Auto) 1.200 H, Neut % (Auto) 74.7 H, Lymph % (Auto) 12.7 L, Larue % (Auto) 9.6, Eos % (Auto) 1.2, Baso % (Auto) 0.6, Absolute Neuts (auto) 8.8 H, Absolute Lymphs (auto) 1.49, Nucleated RBC % 0, D-Dimer Quant (PE/DVT) 2.11 H*, Sodium 137, Potassium 3.4 L, Chloride 102, Carbon Dioxide 31.0, Anion Gap 4 L, BUN 22 H, Creatinine 1.07, Estim Creat Clear Calc 70.12, Est GFR (MDRD) Af Amer 89, Est GFR (MDRD) Non-Af 73, BUN/Creatinine Ratio 20.6 H, Glucose 141 H, Calcium 9.0, Troponin I High Sens 102 H, B-Natriuretic Peptide 17.4 03/26/23 18:50: Lactic Acid 0.9 03/26/23 20:14: Specimen Type ART, Sample Site R Radial, pH 7.44, Bicarbonate Actual 31.3 H, Total CO2 33, Base Excess 7 H, O2 Saturation 92 L, O2 % 50, ABG pCO2 46.0 H, ABG pO2 62 L, Prabhu Test Positive, O2 Delivery Device Venti Mask 03/26/23 22:27: Magnesium 2.1, Troponin I High Sens 182 H*, Procalcitonin < 0.04, Phenytoin 16.1 03/26/23 23:11: MRSA (PCR) Negative 03/27/23 00:35: Troponin I High Sens 153 H* 03/27/23 04:50: WBC 11.5 H, RBC 5.11, Hgb 15.7, Hct 47.8, MCV 93.5, MCH 30.7, MCHC 32.8, RDW Std Deviation 51.7 H, RDW Coeff of Theodore 15.1 H, Plt Count 165, MPV 11.3, Immature Gran % (Auto) 1.000 H, Neut % (Auto) 69.4, Lymph % (Auto) 17.8 L, Larue % (Auto) 10.3 H, Eos % (Auto) 1.1, Baso % (Auto) 0.4, Absolute Neuts (auto) 8.0 H, Absolute Lymphs (auto) 2.04, Nucleated RBC % 0, Sodium 137, Potassium 3.9, Chloride 103, Carbon Dioxide 29.0, Anion Gap 5, BUN 16, Creatinine 0.90, Estim Creat Clear Calc 83.36, Est GFR (MDRD) Af Amer 109, Est GFR (MDRD) Non-Af 90, BUN/Creatinine Ratio 17.8, Glucose 97, Hemoglobin A1c 5.9 H, Calcium 8.5, Total Bilirubin 0.30, AST 14 L, ALT 8 L, Alkaline Phosphatase 109, Troponin I High Sens 105 H, Total Protein 7.1, Albumin 3.1 L, Globulin 4.0, Albumin/Globulin Ratio 0.8 L, Triglycerides 102, Cholesterol 149, LDL Cholesterol 65, VLDL Cholesterol 20, HDL Cholesterol 64 Charges/Coding Visit Charges Inpatient E&M: 85992 Subs Hosp L2
[2023-03-27] MEDS: hydroCHLOROthiazide 25 MG Tablet PO (10:09)
[2023-03-27] MEDS: Atorvastatin Calcium 10 MG Tablet PO (10:09)
[2023-03-27] MEDS: Nicotine Polacrilex 2 MG GUM PO (10:09)
[2023-03-27] MEDS: Aspirin 81 MG TAB.CHEW PO (10:10)
[2023-03-27] MEDS: Furosemide 40 MG Tablet PO (10:10)
[2023-03-27] MEDS: Lisinopril 20 MG Tablet PO (10:10)
[2023-03-27] MEDS: Pantoprazole Sodium 20 MG Tablet PO ×2 (10:10→22:00)
[2023-03-27] MEDS: APIXABAN 5 MG TABLET 10 MG PO (10:10)
[2023-03-27 13:30] LABS: International Normalized Ratio 1.2; Prothrombin Time (Protime)PT. 15.7 SECONDS (11.7-14.9)
--- NOTE | 2023-03-27 15:55 | CASEMGMT ---
SRINI CRUZ Discharge Planning Assessment: Face to Face with patient for initial transition planning/care coordination assessment. SRINI CRUZ introduced self and role at [facility], pt alert, oriented, voices understanding and is agreeable to participating in assessment.. Care providers, pharmacy, and demographics verified. Admitting dx: Pneumonia, PE PCP: Nicolas Specialists: [place] (neurologist) Preferred Pharmacy: [facility] Insurance: [facility] A/B Prescription Benefit: Pt states he does not know but that his daughter would know. Declines for this SRINI CRUZ to contact his daughter stating she will be later this evening. Living Will/HPOA: none and is not interested in completing them at this time. States he will work with an employment attorney after discharge. LNOK: daughter Jai Living Arrangements: Pt lives with his daughter Jai in a two story home with a first floor set up. Pt denies any issues with stairs and states he is very independent with ADLs. 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 Transportation: Pt drives DME/HHC/SNF: none Plan: Return home Discussed possible home needs including oxygen and educated pt on follow-up needed with his PCP and with lab work for coumadin INR monitoring. Pt states he is very anxious and is not sure he will be able to stay in the hospital for very long as he is used to being outside doing work. Pt states repeatedly that he feels that the current treatment will end all of his activities and he will need to remain in his home. Explained home O2 process including home O2 concentrator set up and portable tanks. Attempted to reassure pt with education on what to expect and break the information down to smaller pieces. Pt states this information is making him more anxious. Offered to work with physician and nursing to provide anti-anxiety medication but pt states I'm not a drug addict and declined wanting to take any medications to relieve his anxiety. If home O2 is needed, pt agreeable to [facility] to supply home O2. Green sheet placed on chart for home O2. Alireza Pop RN CM
--- NOTE | 2023-03-27 16:23 | CHAPLAIN ---
Type of Pastoral Visit _x__ Initial Visit ___ Follow-up Visit ___ On-call Visit ___ General Patient Visit ___ Spiritual Assessment ___ Family Conference ___ Bereavement ___ Rapid Response ___ Code Blue ___ Other (describe below) Pastoral Care Referral From _x__ Patient ___ Family ___ Nurse ___ Physician ___ Database Marketing Analyst ___ Head Sampler ___ Other (describe below) Sacrament/Intervention _x__ Active listening ___ Anointing ___ Congregational ___ Bereavement ___ Communion ___ Belen exploration ___ ___ Life review _x__ Prayer ___ Reconciliation ___ Sacrament of Sick ___ Supportive presence ___ Wedding ___ Other (describe below) Pastoral Comments patient describes his situation and his life; pt has his own personal perspectives on life and spirituality but acknowledges need for a prayer; pt goal is to go home soon
[2023-03-27] MEDS: Phenytoin Na 100 MG Capsule 600 MG PO (16:39)
[2023-03-27] MEDS: Enoxaparin 150 MG/ML Syringe SC (22:00)
[2023-03-28] VITALS (8 sets, daily range): BP systolic 118–134; BP diastolic 64–74; PULSE 71–77; RESP 16–20; TEMP 36.3–36.9; O2SAT 93–95; BMI 46.7
[2023-03-28] MEDS: 0.9% Normal Saline 1,000 ML 100 ML IV ×2 (05:03→16:10)
[2023-03-28 07:12] LABS: Absolute Lymphocyte Count 1.71 X10^3/uL (0.83-4.51); Basophil# 0.04 X10^3/uL; Basophil% 0.4 % (0-1); Eosinophil# 0.18 X10^3/uL; Eosinophils% 1.8 % (0-5); Hematocrit 47.7 % (40-54); Lymphocyte # 1.71 X10^3/ul (0.83-4.51); Lymphocyte % 16.9 % (19-41); Mean Corp Hgb Conc 31.4 g/dL (32-36); Mean Corpuscular Hgb 29.8 pg (27.0-32.0); Mean Corpuscular Volume 94.6 fL (80-94); Monocyte# 1.09 X10^3/uL; Monocyte% 10.8 % (0-10); NRBC Flagged by Analyzer 0 % (0-5); Neutrophil # 6.95 X10^3/uL (2.7-7.7); Neutrophil % 68.8 % (47-70); Platelet Count 172 K/mm3 (150-450); RBC Distribution Width CV 15.3 % (11.6-14.6); RBC Distribution Width SD 52.4 fl (35.1-43.9); Red Blood Count 5.04 M/mm3 (4.6-6.2); White Blood Count 10.1 K/mm3 (4.4-11.0)
[2023-03-28] MEDS: Ipratropium/Albuterol Sulfate 3 ML AMPUL.NEB INHALATION ×3 (07:32→15:18)
[2023-03-28 07:42] LABS: Anion Gap 5 (5-15); BUN 11 mg/dL (7-18); BUN/Creat Ratio 13.3 RATIO (10-20); Calcium,Total 8.6 mg/dL (8.5-10.1); Chloride 104 mmol/L (98-107); Creatinine, Serum 0.83 mg/dL (0.70-1.30); EST Glomerular Filtration Rate 99 mL/min (>60); Est Glom Filt Rate - Afr Amer 119 mL/min (>60); Estimated Creatinine Clearance 90.39 ml/min; Glucose 103 mg/dL (74-106); Potassium 3.5 mmol/L (3.5-5.1); Sodium Level 137 mmol/L (136-145)
[2023-03-28 07:55] LABS: International Normalized Ratio 1.1; Prothrombin Time (Protime)PT. 14.6 SECONDS (11.7-14.9)
[2023-03-28] MEDS: Aspirin 81 MG TAB.CHEW PO (09:32)
[2023-03-28] MEDS: hydroCHLOROthiazide 25 MG Tablet PO (09:32)
[2023-03-28] MEDS: Furosemide 20 MG Tablet PO (09:32)
[2023-03-28] MEDS: Lisinopril 20 MG Tablet PO (09:33)
[2023-03-28] MEDS: Pantoprazole Sodium 20 MG Tablet PO ×2 (09:33→21:12)
[2023-03-28] MEDS: Enoxaparin 150 MG/ML Syringe SC ×2 (09:33→21:12)
[2023-03-28] MEDS: Atorvastatin Calcium 10 MG Tablet PO (09:33)
--- NOTE | 2023-03-28 14:50 | PN.HOSP_ITS ---
Reason for Visit Reason for Visit: Diagnoses Pneumonia, unspecified organism (03/26/23) Objective Data Objective Data Vital Signs: Vital Signs Temp Pulse Resp BP Pulse Ox O2 Del Method O2 Flow Rate 97.6 F L 71 18 134/66 H 95 Room Air 4 03/28/23 09:24 03/28/23 10:53 03/28/23 10:53 03/28/23 09:24 03/28/23 09:33 03/28/23 14:25 03/28/23 14:25 FiO2 50 03/27/23 09:20 Oxygen Flow Rate (L/min) 4 Oxygen Delivery Method Room Air Weight: 326 lb 1.019 oz Body Mass Index (BMI) 46.7 Intake & Output: Intake and Output for Last 24 Hours 03/26/23 03/27/23 03/28/23 23:59 23:59 23:59 Intake Total 525 / 525 3541.67 / 3541.67 1100 / 1100 Output Total 200 / 200 2365 / 2365 400 / 400 Balance 325 / 325 1176.67 / 1176.67 700 / 700 Lab / Micro Data 03/28/23 06:40 03/28/23 06:40 Labs: Laboratory Results - last 24 hr 03/28/23 06:40: WBC 10.1, RBC 5.04, Hgb 15.0, Hct 47.7, MCV 94.6 H, MCH 29.8, MCHC 31.4 L, RDW Std Deviation 52.4 H, RDW Coeff of Theodore 15.3 H, Plt Count 172, MPV 11.0, Immature Gran % (Auto) 1.300 H, Neut % (Auto) 68.8, Lymph % (Auto) 16.9 L, [place] % (Auto) 10.8 H, Eos % (Auto) 1.8, Baso % (Auto) 0.4, Absolute Neuts (auto) 7.0, Absolute Lymphs (auto) 1.71, Nucleated RBC % 0, PT 14.6, INR 1.1, Sodium 137, Potassium 3.5, Chloride 104, Carbon Dioxide 28.0, Anion Gap 5, BUN 11, Creatinine 0.83, Estim Creat Clear Calc 90.39, Est GFR (MDRD) Af Amer 119, Est GFR (MDRD) Non-Af 99, BUN/Creatinine Ratio 13.3, Glucose 103, Calcium 8.6 Micro: Microbiology 03/27/23 01:46 Sputum, Expectorated/Coughed Gram Stain - Final 03/27/23 01:46 Sputum, Expectorated/Coughed Respiratory Culture - Preliminary Appears to be normal respiratory maral. Further studies to follow. 03/27/23 00:45 Mucosa - Nasopharyngeal Respiratory Panel (PCR) - Final 03/27/23 00:45 Mucosa - Nasopharyngeal Coronavirus COVID-19 PCR - Final 03/27/23 01:46 Urine, Clean Catch Legionella Antigen - Final 03/27/23 01:46 Urine, Clean Catch Streptococcus pneumoniae Antigen (M - Final 03/26/23 16:55 Nasal Secretion SARS-CoV-2 & FLU Antigen (Rapid) - Final Physical Exam Narrative Seen and examined. History taken from the patient and patient's daughter near the bedside. Patient has history of chewing tobacco but denies a smoking cigarettes. Shortness of breath is better although patient is still on Ventimask. Denies chest pain/tightness or pressure. Denies chronic heart disease or lung disease. No fever. Physical exam General: Alert, Oriented x3, Cooperative, morbid obesity BMI 46.7 kg/m?. HEENT: Atraumatic, PERRLA, EOMI, Normocephalic Oral: Deep pharyngeal structures could not be visualized. No Gingival or Mucosal Lesions/ Ulcerations Neck: Supple, No JVD, Negative Carotid Bruits Lungs: Air entry diminished in bilateral lung bases. No crepitation/rhonchi Cardiovascular: Regular rate, Regular Rhythm, Normal S1, Normal S2, No murmurs Abdomen: Bowel Sounds Present, Soft, Non Tender, Non-Distended : No dysuria or new lower urinary tract symptoms. No renal angle tenderness. No suprapubic tenderness. Extremities: Bilateral 2+ pitting edema, Capillary Refill Less than 3 Seconds Skin: No rashes, No breakdown Musculoskeletal: No Tenderness to Palpation of Joints or Extremities Neurological: Cranial nerves II-XII grossly intact, DTR 2+/4 and Symmetrical, Neuro grossly intact Psych/Mental Status: Normal Affect, Appropriate. Assessment & Plan Assessment/Plan (1) Pneumonia: PLAN: Plan The patient is a 67 y/o M is admitted for shortness of breath intermittently been progressive worsening for 1 week. No fevers chills chest pain. Mild lower extremity swelling. #1. Acute hypoxic respiratory failure, multifactorial due to left lower lobe consolidation/pneumonia, bilateral groundglass interstitial infiltrate and bilat eral PE patient is admitted in PCU. On IV ceftriaxone and azithromycin. On DuoNeb scheduled, incentive spirometry and Pep. Pneumonia work-up ordered to ED. Respiratory panel, COVID-[address] chest shows left lower lobe consolidation, mild bilateral groundglass interstitial infiltrates in the spiculated multinodular lesion right middle lobe measuring up to 9 mm. Normal pleura. 03/28: Preliminary sputum culture shows normal respiratory maral. Continue IV antibiotic. Patient is still on 4 L of oxygen and mild shortness of breath on exertion. #2. Bilateral pulmonary embolism involving right middle lobe, right lower lobe and their segmental branches, lingular segmental branches: CTA shows normal enhancement of bilateral peripheral pulmonary arteries and no evidence of right ventricular strain. BNP normal. Patient is started on apixaban. Patient on phenytoin which has level 2 interaction can decrease effectiveness of anticoagulants because of strong CYP 3 A4 inducer and P-gp. Discuss with manager technical services. 03/28: Patient was started on Lovenox and warfarin yesterday after discussion with manager technical services Dr. Greer. We agreed that increased effectiveness of DOACs in view of drug interaction with phenytoin and no objective way of checking its effectiveness. INR 1.1. 2D echo reported normal LV size systolic function, EF 55%, stage I diastolic function. Mild eccentric TR PASP 32 mmHg. Technically difficult study. No comment about right ventricle. #3. Elevated troponin most likely small myocardial injury due to increased cardiac demand and hypoxia: Patient does not have chest pain. First 1 was 102. Downward trends of troponin from 180-105. Patient does not have chest pain or pressure. EKG shows sinus rhythm with nonspecific changes. 2D echo requested. Serum magnesium normal 2.1. Patient on baby aspirin, statin and lisinopril. Fasting profile shows LDL 65, HDL 64. Total cholesterol 149 all in normal range. #4. Incidental spiculated nodule right middle lobe: Patient with notable spiculated nodule in the right lower lobe measuring 9 mm, noted to be multinodular, will need to follow-up with pulmonary medicine and further evaluation. #5. Hypokalemia: Admission K+ 3.4, repeat potassium 3.9. #6. Hyperglycemia: A1c 5.9% suggestive of prediabetes #7. Seizure disorder: continue patient home phenytoin regimen, level requested to be cautious. #8. Hypertension: Continue home regimen including Lasix, lisinopril, hydrochlorothiazide although will transition doses to tomorrow and attempt to aggressively hydrate given acute infectious presentation and low threshold to hold these further as needed, PRN hydralazine. #9. Hyperlipidemia: continue patient on statin therapy. #10. Chronic snuff tobacco usage: Encourage snuff tobacco cessation, RT consultation pending, NR supplementation if requested. #11. Morbid Obesity: Weight loss and lifestyle changes encouraged. #12. DVT prophylaxis: Patient already administered oral apixaban in the ED, will continue however will need to ascertain cost prior to discharge to home to be safe. #13. CODE status: Discussed CODE status at length including difference between FULL code, DNR-CCA and DNR-CC status. Following discussions about the differences in these status, requested Full Code status. Clinical Impression(s) from Imaging Studies Chest X-Ray 03/26/23 17:10 IMPRESSION: Possible left lower lobe infiltrate Chest CTA 03/26/23 17:45 IMPRESSION: Multiple pulmonary emboli. No right heart failure. Left lower lobe consolidation and bilateral groundglass infiltrates.. Spiculated nodules right middle lobe. Recommend follow-up to resolution. Microbiology Past 72 Hours 03/27/23 01:46 Sputum, Expectorated/Coughed Gram Stain - Final 03/27/23 01:46 Sputum, Expectorated/Coughed Respiratory Culture - Preliminary Appears to be normal respiratory maral. Further studies to follow. 03/27/23 00:45 Mucosa - Nasopharyngeal Respiratory Panel (PCR) - Final 03/27/23 00:45 Mucosa - Nasopharyngeal Coronavirus COVID-19 PCR - Final 03/27/23 01:46 Urine, Clean Catch Legionella Antigen - Final 03/27/23 01:46 Urine, Clean Catch Streptococcus pneumoniae Antigen (M - Final 03/26/23 16:55 Nasal Secretion SARS-CoV-2 & FLU Antigen (Rapid) - Final Laboratory Results 03/28/23 06:40: WBC 10.1, RBC 5.04, Hgb 15.0, Hct 47.7, MCV 94.6 H, MCH 29.8, MCHC 31.4 L, RDW Std Deviation 52.4 H, RDW Coeff of Theodore 15.3 H, Plt Count 172, MPV 11.0, Immature Gran % (Auto) 1.300 H, Neut % (Auto) 68.8, Lymph % (Auto) 16.9 L, [place] % (Auto) 10.8 H, Eos % (Auto) 1.8, Baso % (Auto) 0.4, Absolute Neuts (auto) 7.0, Absolute Lymphs (auto) 1.71, Nucleated RBC % 0, PT 14.6, INR 1.1, Sodium 137, Potassium 3.5, Chloride 104, Carbon Dioxide 28.0, Anion Gap 5, BUN 11, Creatinine 0.83, Estim Creat Clear Calc 90.39, Est GFR (MDRD) Af Amer 119, Est GFR (MDRD) Non-Af 99, BUN/Creatinine Ratio 13.3, Glucose 103, Calcium 8.6 Charges/Coding Visit Charges Inpatient E&M: 03457 Subs Hosp L2
[2023-03-28] MEDS: Sodium Chloride 0.65% 1 SPRAY SPRAY.BTL 2 SPRAY NASAL (16:02)
[2023-03-28] MEDS: Phenytoin Na 100 MG Capsule 600 MG PO (16:07)
[2023-03-29] VITALS (7 sets, daily range): BP systolic 113–119; BP diastolic 70–78; PULSE 66–77; RESP 16–21; TEMP 36.1–36.7; O2SAT 88–94; BMI 46.7
[2023-03-29] MEDS: 0.9% Normal Saline 1,000 ML 100 ML IV (00:29)
[2023-03-29 05:46] LABS: Absolute Neutrophil Count 7.2 X10^3/uL (2.0-7.7); Basophil# 0.05 X10^3/uL; Basophil% 0.5 % (0-1); Eosinophil# 0.19 X10^3/uL; Eosinophils% 1.9 % (0-5); Hematocrit 46.7 % (40-54); Hemoglobin 15.1 g/dL (13.0-16.5); Lymphocyte % 16.6 % (19-41); Mean Corp Hgb Conc 32.3 g/dL (32-36); Mean Corpuscular Hgb 30.3 pg (27.0-32.0); Mean Corpuscular Volume 93.6 fL (80-94); Mean Platelet Vol. 11.1 fl (6.2-12.0); Monocyte% 9.8 % (0-10); NRBC Flagged by Analyzer 0 % (0-5); Neutrophil # 7.17 X10^3/uL (2.7-7.7); Neutrophil % 70.1 % (47-70); Platelet Count 184 K/mm3 (150-450); RBC Distribution Width CV 15.4 % (11.6-14.6); RBC Distribution Width SD 52.3 fl (35.1-43.9); Red Blood Count 4.99 M/mm3 (4.6-6.2); White Blood Count 10.2 K/mm3 (4.4-11.0)
[2023-03-29 05:59] LABS: International Normalized Ratio 1.1; Prothrombin Time (Protime)PT. 14.4 SECONDS (11.7-14.9)
[2023-03-29 06:03] LABS: Anion Gap 4 (5-15); BUN 11 mg/dL (7-18); BUN/Creat Ratio 13.3 RATIO (10-20); Calcium,Total 8.3 mg/dL (8.5-10.1); Chloride 104 mmol/L (98-107); Creatinine, Serum 0.83 mg/dL (0.70-1.30); EST Glomerular Filtration Rate 99 mL/min (>60); Est Glom Filt Rate - Afr Amer 119 mL/min (>60); Estimated Creatinine Clearance 90.39 ml/min; Glucose 98 mg/dL (74-106); Potassium 3.6 mmol/L (3.5-5.1); Sodium Level 137 mmol/L (136-145)
[2023-03-29] MEDS: Ipratropium/Albuterol Sulfate 3 ML AMPUL.NEB INHALATION ×2 (07:14→11:13)
--- NOTE | 2023-03-29 08:03 | DCINST_ITS ---
Discharge Instructions Diet Discharge Diet: Low fat / Low cholesterol and 2000 mg Sodium Diet Activity Discharge Activity: Return to Normal Activity Weight Bearing Status: Weight bearing as tolerated Dressing / Incision Call your doctor if you observe: Fever of 101 or Higher, Coldness, Increased Pain, Numbness or Tingling, Change in Color, Inability to urinate, Inability to have a bowel movement, Shortness of breath, Dizziness, Fainting spells, Swelling in the ankles, Chest pain, Prolonged hiccupping, Increased palpitations (irregular heartbeat) and Calf discomfort Follow Up Care When: IN 2 WEEKS Test Results: Test results from this visit will be discussed in further detail at your follow- up appointment, if applicable. Discharge Plan Admission Admit Date/Time: 03/26/23 19:46 Primary Reason for Your Visit: Bilateral pulmonary embolism and right middle lobe pneumonia Attending Provider: Kendrick Sanchez Primary Care Provider: Colton Valenzuela Consulting Providers: Jessie Barahona Instructions Additional Instructions / Restrictions: Advised warfarin 7.5 mg daily for 2 days until 03/30/2023 and then 5 mg daily. Follow-up PT/INR on 03/31/2023 with PCP and adjust the dose of warfarin accordingly Discharge Orders/Prescriptions Prescriptions: New warfarin [Jantoven] 5 mg Tablet 7.5 mg PO DINNER 30 Days Qty: 45 1RF Rx Instructions: Warfarin 7.5 g daily for 2 days and then 5 mg daily. Follow-up INR on 03/31/2023 with PCP enoxaparin 150 mg/mL Syringe 150 mg subcut Q12 5 Days Qty: 10 0RF Deep Sea Nasal 0.65 % Aerosol,[place] 2 spray NASAL TID PRN PRN (Reason: Nasal Dryness) Qty: 0 0RF pseudoephedrine-guaifenesin [Mucus D] 120-1,200 mg tablet extended release 12 hr 1 tab PO Q12H 7 Days Qty: 14 0RF cefdinir 300 mg capsule 300 mg PO BID 5 Days Qty: 10 0RF Continued phenytoin sodium extended [Dilantin Extended] 100 MG capsule 600 mg PO DINNER Patient Comments: seizures furosemide 40 mg tablet 40 mg PO QODAY Patient Comments: TAKE 1 TABLET BY MOUTH DAILY IN THE MORNING. alternate 20mg and 40mg dosing atorvastatin 10 mg tablet 10 mg PO DAILY Patient Comments: TAKE 1 TABLET BY MOUTH EVERY DAY WITH evening meal lisinopril-hydrochlorothiazide 20-25 mg tablet 1 tab PO DAILY Patient Comments: TAKE 1 TABLET BY MOUTH DAILY furosemide 20 mg tablet 20 mg PO QODAY Patient Comments: TAKE 1 TABLET BY MOUTH EVERY OTHER DAY IN THE MORNING alternate 20mg and 40mg dosing Referrals / Follow Up: Deyvi Salguero DO [Med Staff - Active Staff] - Within 2 Weeks (For new onset bilateral PE and pneumonia and lung nodule. Patient discharged on O2) Colton Valenzuela DO [Primary Care Provider] - Within 1 Week (Patient will call his PCP tomorrow for PT/INR lab on 03/31/2023 and follow-up with him to adjust the dose of warfarin accordingly.) Disposition Disposition (needs filled in before D/C Order can be placed): Home, Self Care
[2023-03-29] MEDS: Aspirin 81 MG TAB.CHEW PO (09:30)
[2023-03-29] MEDS: Furosemide 40 MG/4 ML Vial IV (09:30)
[2023-03-29] MEDS: hydroCHLOROthiazide 25 MG Tablet PO (09:31)
[2023-03-29] MEDS: Atorvastatin Calcium 10 MG Tablet PO (09:31)
[2023-03-29] MEDS: Enoxaparin 150 MG/ML Syringe SC (09:32)
[2023-03-29] MEDS: Pantoprazole Sodium 20 MG Tablet PO (09:32)
[2023-03-29] MEDS: Azithromycin 250 MG Tablet 500 MG PO (09:32)
[2023-03-29] MEDS: Lisinopril 20 MG Tablet PO (09:32)
[2023-03-29] MEDS: 0.9% Saline Lock 10 ML Syringe IV (09:42)
--- NOTE | 2023-03-29 09:57 | DS.PCM_ITS ---
Providers Date of Admission: 03/26/23 Date of Discharge: 03/29/23 Primary Care Physician: Dr. Colton Valenzuela DO Reason For Visit: RESP FAILURE, PNA, BL PE Diagnosis Discharge Diagnosis (1) Pneumonia: Status: Acute Code(s): J18.9 - Pneumonia, unspecified organism Qualifiers: Pneumonia type: due to unspecified organism Laterality: right Lung location: middle lobe of lung Qualified Code(s): J18.9 - Pneumonia, unspecified organism Plan The patient is a 67 y/o M is admitted for shortness of breath intermittently been progressive worsening for 1 week. No fevers chills chest pain. Mild lower extremity swelling. #1. Acute hypoxic respiratory failure, multifactorial due to left lower lobe consolidation/pneumonia, bilateral groundglass interstitial infiltrate and bilateral PE patient is admitted in PCU. On IV ceftriaxone and azithromycin. On DuoNeb scheduled, incentive spirometry and Pep. Pneumonia work-up ordered to ED. Respiratory panel, COVID-[address] chest shows left lower lobe consolidation, mild bilateral groundglass interstitial infiltrates in the spiculated multinodular lesion right middle lobe measuring up to 9 mm. Normal pleura. 03/28: Preliminary sputum culture shows normal respiratory maral. Continue IV antibiotic. Patient is still on 4 L of oxygen and mild shortness of breath on exertion. 03/29:Patient is discharged on cefdinir for 5 more days. Patient had 3 days of IV antibiotic during the hospital course. Patient is still on 2 L of oxygen and does not feel short of breath or dyspnea. Home qualification oxygen. Patient is ambulatory in home and in the community and requires home oxygen with portability for bilateral PE and pneumonia. #2. Bilateral pulmonary embolism involving right middle lobe, right lower lobe and their segmental branches, lingular segmental branches: CTA shows normal enhancement of bilateral peripheral pulmonary arteries and no evidence of right ventricular strain. BNP normal. Patient is started on apixaban. Patient on phenytoin which has level 2 inte raction can decrease effectiveness of anticoagulants because of strong CYP 3 A4 inducer and P-gp. Discuss with ticker installer. 03/28: Patient was started on Lovenox and warfarin yesterday after discussion with ticker installer Dr. Greer. We agreed that increased effectiveness of DOACs in view of drug interaction with phenytoin and no objective way of checking its effectiveness. INR 1.1. 2D echo reported normal LV size systolic function, EF 55%, stage I diastolic function. Mild eccentric TR PASP 32 mmHg. Technically difficult study. No comment about right ventricle. 03/29: Warfarin dose increased to 7.5 mg daily. Continue Lovenox. Prescription given for bridging Lovenox therapy for 5 days and warfarin, 7.5 mg for 2 days and then 5 mg daily to continue. PT/INR on 03/31/2023 and titrate the dose of warfarin according to INR in consultation with PCP. This was discussed with the patient in detail. #3. Elevated troponin most likely small myocardial injury due to increased cardiac demand and hypoxia: Patient does not have chest pain. First 1 was 102. Downward trends of troponin from 180-105. Patient does not have chest pain or pressure. EKG shows sinus rhythm with nonspecific changes. 2D echo requested. Serum magnesium normal 2.1. Patient on baby aspirin, statin and lisinopril. Fasting profile shows LDL 65, HDL 64. Total cholesterol 149 all in normal range. #4. Incidental spiculated nodule right middle lobe: Patient with notable spiculated nodule in the right lower lobe measuring 9 mm, noted to be multinodular, will need to follow-up with pulmonary medicine and further evaluation. 03/29: Follow-up with Dr. Salguero in pulmonary clinic in 2 weeks for mild hypoxia, lung nodule bilateral pulmonary embolism and pneumonia. #5. Hypokalemia: Admission K+ 3.4, repeat potassium 3.9. #6. Hyperglycemia: A1c 5.9% suggestive of prediabetes #7. Seizure disorder: continue patient home phenytoin regimen, level requested to be cautious. #8. Hypertension: Continue home regimen including Lasix, lisinopril, hydrochlorothiazide although will transition doses to tomorrow and attempt to aggressively hydrate given acute infectious presentation and low threshold to hold these further as needed, PRN hydralazine. #9. Hyperlipidemia: continue patient on statin therapy. #10. Chronic snuff tobacco usage: Encourage snuff tobacco cessation, RT consultation pending, NR supplementation if requested. #11. Morbid Obesity: Weight loss and lifestyle changes encouraged. #12. DVT prophylaxis: Patient already administered oral apixaban in the ED, will continue however will need to ascertain cost prior to discharge to home to be safe. #13. CODE status: Discussed CODE status at length including difference between FULL code, DNR-CCA and DNR-CC status. Following discussions about the differences in these status, requested Full Code status. Discharge medication reconciliation done. Discharge follow-up instructions completed. Discharge process discussed with the patient and all questions were answered to patient's satisfaction. Discharged on home oxygen. Total time spent, exact 35 minutes on discharge meds reconciliation, examination, coordination of care with nurses and ancillary staff, review of imaging and blood test and discussion with the patient on follow-up instructions. Clinical Impression(s) from Imaging Studies Chest X-Ray 03/26/23 17:10 IMPRESSION: Possible left lower lobe infiltrate Chest CTA 03/26/23 17:45 IMPRESSION: Multiple pulmonary emboli. No right heart failure. Left lower lobe consolidation and bilateral groundglass infiltrates.. Spiculated nodules right middle lobe. Recommend follow-up to resolution. Microbiology Past 72 Hours 03/27/23 01:46 Sputum, Expectorated/Coughed Gram Stain - Final 03/27/23 01:46 Sputum, Expectorated/Coughed Respiratory Culture - Preliminary Appears to be normal respiratory maral. Further studies to follow. 03/27/23 00:45 Mucosa - Nasopharyngeal Respiratory Panel (PCR) - Final 03/27/23 00:45 Mucosa - Nasopharyngeal Coronavirus COVID-19 PCR - Final 03/27/23 01:46 Urine, Clean Catch Legionella Antigen - Final 03/27/23 01:46 Urine, Clean Catch Streptococcus pneumoniae Antigen (M - Final 03/26/23 16:55 Nasal Secretion SARS-CoV-2 & FLU Antigen (Rapid) - Final Laboratory Results 03/28/23 06:40: WBC 10.1, RBC 5.04, Hgb 15.0, Hct 47.7, MCV 94.6 H, MCH 29.8, MCHC 31.4 L, RDW Std Deviation 52.4 H, RDW Coeff of Theodore 15.3 H, Plt Count 172, MPV 11.0, Immature Gran % (Auto) 1.300 H, Neut % (Auto) 68.8, Lymph % (Auto) 16.9 L, Forest % (Auto) 10.8 H, Eos % (Auto) 1.8, Baso % (Auto) 0.4, Absolute Neuts (auto) 7.0, Absolute Lymphs (auto) 1.71, Nucleated RBC % 0, PT 14.6, INR 1.1, Sodium 137, Potassium 3.5, Chloride 104, Carbon Dioxide 28.0, Anion Gap 5, BUN 11, Creatinine 0.83, Estim Creat Clear Calc 90.39, Est GFR (MDRD) Af Amer 119, Est GFR (MDRD) Non-Af 99, BUN/Creatinine Ratio 13.3, Glucose 103, Calcium 8.6 Medications at Discharge Home Medications phenytoin sodium extended 100 mg capsule (Dilantin Extended) 600 mg PO DINNER 12/23/16 atorvastatin 10 mg tablet 10 mg PO DAILY 03/26/23 furosemide 20 mg tablet 20 mg PO QODAY 03/26/23 furosemide 40 mg tablet 40 mg PO QODAY 03/26/23 lisinopril 20 mg-hydrochlorothiazide 25 mg tablet 1 tab PO DAILY 03/26/23 cefdinir 300 mg capsule 300 mg PO BID 5 days #10 caps 03/29/23 enoxaparin 150 mg/mL subcutaneous syringe 150 mg subcut Q12 5 days #10 mL 03/29/23 pseudoephedrine-guaifenesin ER 120 mg-1,200 mg tab,extend release 12hr (Mucus D) 1 tab PO Q12H cold symptoms 7 days #14 tabs 03/29/23 sodium chloride 0.65 % nasal spray aerosol (Deep Sea Nasal) 2 spray NASAL TID PRN PRN Nasal Dryness #0 mL 03/29/23 warfarin 5 mg tablet (Jantoven) 7.5 mg (1.5 x 5 mg) PO DINNER 30 days #45 tabs 03/29/23 Physical Exam Narrative Seen and examined. Shortness of breath is much improved. Patient on 2 L of oxygen. Denies dyspnea at rest or on exertion. Patient has history of chewing tobacco but denies a smoking cigarettes. Denies chronic heart disease or lung disease. No fever. Physical exam General: Alert, Oriented x3, Cooperative, morbid obesity BMI 46.7 kg/m?. HEENT: Atraumatic, PERRLA, EOMI, Normocephalic Oral: Deep pharyngeal structures could not be visualized. No Gingival or Mucosal Lesions/ Ulcerations Neck: Supple, No JVD, Negative Carotid Bruits Lungs: Air entry diminished in bilateral lung bases. No crepitation/rhonchi Cardiovascular: Regular rate, Regular Rhythm, Normal S1, Normal S2, No murmurs Abdomen: Bowel Sounds Present, Soft, Non Tender, Non-Distended : No dysuria or new lower urinary tract symptoms. No renal angle tenderness. No suprapubic tenderness. Extremities: Bilateral 2+ pitting edema, Capillary Refill Less than 3 Seconds Skin: No rashes, No breakdown Musculoskeletal: No Tenderness to Palpation of Joints or Extremities Neurological: Cranial nerves II-XII grossly intact, DTR 2+/4 and Symmetrical, Neuro grossly intact Psych/Mental Status: Normal Affect, Appropriate. Weight / BMI Weight Weight: 326 lb 4.546 oz Body Mass Index (BMI) 46.7 ABG / Lab / Microbiology Data 03/29/23 05:05 03/29/23 05:05 Laboratory: Laboratory Results - last 24 hr 03/29/23 05:05: WBC 10.2, RBC 4.99, Hgb 15.1, Hct 46.7, MCV 93.6, MCH 30.3, MCHC 32.3, RDW Std Deviation 52.3 H, RDW Coeff of Theodore 15.4 H, Plt Count 184, MPV 11.1, Immature Gran % (Auto) 1.100 H, Neut % (Auto) 70.1 H, Lymph % (Auto) 16.6 L, [place] % (Auto) 9.8, Eos % (Auto) 1.9, Baso % (Auto) 0.5, Absolute Neuts (auto) 7.2, Absolute Lymphs (auto) 1.70, Nucleated RBC % 0, PT 14.4, INR 1.1, Sodium 137, Potassium 3.6, Chloride 104, Carbon Dioxide 29.0, Anion Gap 4 L, BUN 11, Creatinine 0.83, Estim Creat Clear Calc 90.39, Est GFR (MDRD) Af Amer 119, Est GFR (MDRD) Non-Af 99, BUN/Creatinine Ratio 13.3, Glucose 98, Calcium 8.3 L Microbiology: Microbiology 03/27/23 01:46 Sputum, Expectorated/Coughed Gram Stain - Final 03/27/23 01:46 Sputum, Expectorated/Coughed Respiratory Culture - Final 03/26/23 19:22 Blood Culture (Wb) - Venous Blood Culture - Preliminary No growth in 48 hours. 03/26/23 18:50 Blood Culture (Wb) - Right Wrist Blood Culture - Preliminary No growth in 48 hours. 03/27/23 00:45 Mucosa - Nasopharyngeal Respiratory Panel (PCR) - Final 03/27/23 00:45 Mucosa - Nasopharyngeal Coronavirus COVID-19 PCR - Final 03/27/23 01:46 Urine, Clean Catch Legionella Antigen - Final 03/27/23 01:46 Urine, Clean Catch Streptococcus pneumoniae Antigen (M - Final 03/26/23 16:55 Nasal Secretion SARS-CoV-2 & FLU Antigen (Rapid) - Final D/C Instructions Discharge Diet: Low fat / Low cholesterol and 2000 mg Sodium Diet Weight Bearing Status: Weight bearing as tolerated Call your doctor if you observe: Fever of 101 or Higher, Coldness, Increased Pain, Numbness or Tingling, Change in Color, Inability to urinate, Inability to have a bowel movement, Shortness of breath, Dizziness, Fainting spells, Swelling in the ankles, Chest pain, Prolonged hiccupping, Increased palpitations (irregular heartbeat) and Calf discomfort When: IN 2 WEEKS Meaningful Use Info Meaningful Use Diagnoses (Choose all that apply): VTE VTE Anticoag overlap given w/in hospital stay or rx'd at dc?: Yes Pt receive overlap for 5 days?: Yes Discharge Plan Admission Admit Date/Time: 03/26/23 19:46 Primary Reason for Your Visit: Bilateral pulmonary embolism and right middle lobe pneumonia Attending Provider: Kendrick Sanchez Primary Care Provider: Colton Valenzuela Consulting Providers: Jessie Barahona Instructions Additional Instructions / Restrictions: Advised warfarin 7.5 mg daily for 2 days until 03/30/2023 and then 5 mg daily. Follow-up PT/INR on 03/31/2023 with PCP and adjust the dose of warfarin accordingly Discharge Orders/Prescriptions Prescriptions: New warfarin [Jantoven] 5 mg Tablet 7.5 mg PO DINNER 30 Days Qty: 45 1RF Rx Instructions: Warfarin 7.5 g daily for 2 days and then 5 mg daily. Follow-up INR on 03/31/2023 with PCP enoxaparin 150 mg/mL Syringe 150 mg subcut Q12 5 Days Qty: 10 0RF Deep Sea Nasal 0.65 % Aerosol,[place] 2 spray NASAL TID PRN PRN (Reason: Nasal Dryness) Qty: 0 0RF pseudoephedrine-guaifenesin [Mucus D] 120-1,200 mg tablet extended release 12 hr 1 tab PO Q12H 7 Days Qty: 14 0RF cefdinir 300 mg capsule 300 mg PO BID 5 Days Qty: 10 0RF Continued phenytoin sodium extended [Dilantin Extended] 100 MG capsule 600 mg PO DINNER Patient Comments: seizures furosemide 40 mg tablet 40 mg PO QODAY Patient Comments: TAKE 1 TABLET BY MOUTH DAILY IN THE MORNING. alternate 20mg and 40mg dosing atorvastatin 10 mg tablet 10 mg PO DAILY Patient Comments: TAKE 1 TABLET BY MOUTH EVERY DAY WITH evening meal lisinopril-hydrochlorothiazide 20-25 mg tablet 1 tab PO DAILY Patient Comments: TAKE 1 TABLET BY MOUTH DAILY furosemide 20 mg tablet 20 mg PO QODAY Patient Comments: TAKE 1 TABLET BY MOUTH EVERY OTHER DAY IN THE MORNING alternate 20mg and 40mg dosing Referrals / Follow Up: Deyvi Salguero DO [Med Staff - Active Staff] - Within 2 Weeks (For new onset bilateral PE and pneumonia and lung nodule. Patient discharged on O2) Colton Valenzuela DO [Primary Care Provider] - Within 1 Week (Patient will call his PCP tomorrow for PT/INR lab on 03/31/2023 and follow-up with him to adjust the dose of warfarin accordingly.) Disposition Disposition (needs filled in before D/C Order can be placed): Home, Self Care Charges/Coding Visit Charges Inpatient E&M: 67774 Disch Hosp >30min
== END 2023-03-29 12:53 | disposition home or self-care (01) | DRG 196 ==
LOC: ED 19:28 → PCU 20:51
PROVIDERS: Admitting Provider Family Medicine; Emergency Provider Emergency Medicine; Visit Provider Internal Medicine
DX: J84.89 Other specified interstitial pulmonary diseases (principal); J18.9 Pneumonia, unspecified organism; J96.01 Acute respiratory failure with hypoxia; I26.99 Other pulmonary embolism without acute cor pulmonale; Z68.42 Body mass index [BMI] 45.0-49.9, adult; G40.909 Epilepsy, unspecified, not intractable, without status epilepticus; E66.01 Morbid (severe) obesity due to excess calories; E87.6 Hypokalemia; E78.5 Hyperlipidemia, unspecified; I10 Essential (primary) hypertension; F17.220 Nicotine dependence, chewing tobacco, uncomplicated; R73.03 Prediabetes; Z79.01 Long term (current) use of anticoagulants; Z79.899 Other long term (current) drug therapy
CPT/HCPCS: 36415; 36600; 71046; 71275; 80048; 80053; 80061; 80185; 82803; 83036; 83605; 83735; 83880; 84145; 84484; 85025; 85379; 85610; 87040; 87070; 87205; 87428; 87449; 87633; 87635; 87641; 93005; 93306; 94640; 94668; 99285; J7030; Q9957; Q9967; A4216; C8929; J0696; J1940

== ENCOUNTER → 2023-04-21 | Outpatient (CLI) | payer MEDICARE, SELFPAY ==
--- NOTE | 2023-04-22 12:41 | PFT ---
INTRODUCTION: The patient is a 67-year-old male who presents for pulmonary function studies secondary to a diagnosis of pulmonary embolism. Respiratory therapy reported good patient effort. Bronchodilators were used during testing. INTERPRETATION: Forced expiration spirometry demonstrates the presence of a moderately severe large airways obstructive ventilatory defect. There was a significant response to aerosolized bronchodilators. Spirograms are of good quality but do not plateau indicating slow emptying of the lungs. Body plethysmography was performed and revealed a decreased TLC to 5.4 L, 76% of predicted, indicative of a mild restrictive ventilatory impairment. Diffusing capacity by single breath CO was within normal limits. IMPRESSION: Partially reversible moderately severe mixed ventilatory defect with preserved diffusing capacity.
== END | disposition home or self-care (01) ==
PROVIDERS: Referring Provider Internal Medicine Critical Care Medicine; Visit Provider Internal Medicine Critical Care Medicine
DX: I26.94 Multiple subsegmental thrombotic pulmonary emboli without acute cor pulmonale (principal)
CPT/HCPCS: 94060; 94726; 94729

== ENCOUNTER → 2023-07-11 | Outpatient (CLI) | payer MEDICARE, SELFPAY ==
--- NOTE | 2023-07-11 08:41 | CT_ITS ---
INDICATION: Fever and cough EXAMINATION: CT CHEST WITHOUT CONTRAST - CT Chest W/O Contrast Injection TECHNIQUE: Helically acquired images were obtained of the chest. A radiation dose optimization technique was used for this scan. IV Contrast dosage and agent: None. COMPARISON: 03/26/2023 FINDINGS: Stable elevation of the left hemidiaphragm with left basilar atelectasis LUNGS, PLEURA AND LARGE AIRWAYS: Lung windows show the lungs to be normally expanded without evidence of an organized infiltrate, no demonstrated effusion. No suspicious noncalcified mass or nodule THYROID: No thyroid lesions. HEART AND PERICARDIUM: Heart size is normal. No pericardial effusion. CORONARY ARTERIES: Coronary artery calcification is not seen. VESSELS: There is aneurysmal dilatation of the ascending thoracic aorta at 4.5 cm. No suspicious periaortic fluid MEDIASTINUM AND BREE: No suspicious axillary, mediastinal or hilar adenopathy. Esophagus is unremarkable. No hiatal hernia. UPPER ABDOMEN: No acute pathology. BONES: No suspicious lytic or blastic abnormality. CT/Chest without Contrast IMPRESSION: No acute pulmonary process. Stable elevation of the left hemidiaphragm with associated compressive atelectasis. No organizing infiltrate or suspicious noncalcified mass or nodule No suspicious adenopathy Electronically Signed: Edgardo Burns MD at 15:30 EST ,
== END | disposition home or self-care (01) ==
LOC: CT 08:39
PROVIDERS: Referring Provider Internal Medicine Critical Care Medicine; Visit Provider Internal Medicine Critical Care Medicine
DX: R91.1 Solitary pulmonary nodule (principal)
CPT/HCPCS: 71250

== ENCOUNTER 2025-04-18 09:02 | Inpatient (IN) | payer MEDICARE, SELFPAY ==
[2025-04-18] VITALS (34 sets, daily range): BP systolic 107–147; BP diastolic 37–94; PULSE 65–138; RESP 14–26; TEMP 36.2–36.7; O2SAT 91–96; BMI 45.1; BMI 47.2
--- NOTE | 2025-04-18 09:06 | EKG12_ITS ---
Test Reason : STROKE Blood Pressure : */* mmHG Vent. Rate : 75 BPM Atrial Rate : 75 BPM P-R Int : 168 ms QRS Dur : 102 ms QT Int : 402 ms P-R-T Axes : 59 47 47 degrees QTcB Int : 448 ms Normal sinus rhythm Normal ECG Confirmed by PAULA KEENAN, JAYLON ([id number]), video editor MIRELLA DILLON ([id number]) on 04/19/2025 9:35:32 AM Referred By: Confirmed By: JAYLON MITCHELL MD
--- NOTE | 2025-04-18 09:06 | CT_ITS ---
PROCEDURE: STROKE BRAIN/HEAD WITHOUT CONT N/A REASON FOR EXAM: NEURO DEFICIT, ACUTE, STROKE SUSPECTED TECHNIQUE: STROKE BRAIN/HEAD WITHOUT CONT Coronal and Sagittal reconstruction series were provided. One or more dose reduction techniques were used (e.g., Automated exposure control, adjustment of the mA and/or kV according to patient size, use of iterative reconstruction technique. RADIATION DOSE SUMMARY: CTDlvol: 44.99 mGy DLP: 829.85 mGycm COMPARISON: None FINDINGS: Brain: Low density in the periventricular white matter suggests mild chronic small vessel ischemic changes. CSF Spaces: Mild generalized cerebral atrophy Sinuses/Mastoids: Clear at visualized levels Bones: Unremarkable CT/STROKE Brain/Head without Cont IMPRESSION: CHRONIC CHANGES. NO ACUTE FINDINGS. Red Alert: Nothing acute The critical information above was relayed directly by me by telephone to Jeffy Sharp on 04/18/2025 at 9:20 am with readback verification. Reading Location: [id number]
--- NOTE | 2025-04-18 09:07 | CT_ITS ---
PROCEDURE: STROKE CTA HEAD AND NECK W/CON 04/18/2025 REASON FOR EXAM: NEURO DEFICIT, ACUTE, STROKE SUSPECTED TECHNIQUE: STROKE CTA HEAD AND NECK W/CON Multiplanar Sagittal and Coronal images were obtained. 3D post processing was performed CONTRAST: Isovue 370 VOLUME: 100 mL One or more dose reduction techniques were used (e.g., Automated exposure control, adjustment of the mA and/or kV according to patient size, use of iterative reconstruction technique). RADIATION DOSE SUMMARY: CTDlvol: 42 mGy DLP: 904 mGycm COMPARISON: April 18, [address] FINDINGS: Aortic Arch: Normal size and branching pattern. No significant atherosclerotic plaque. Brachiocephalic and Subclavians: Unremarkable RIGHT Carotid: Right CCA: Medial course. Otherwise normal. Right ICA: Medial course. Otherwise normal. Maximum stenosis (NASCET): 0 % Right ECA: Unremarkable LEFT Carotid: Left CCA: Medial course. Otherwise normal. Left ICA: Medial course. Otherwise normal. Maximum stenosis (NASCET): 0 % Left ECA: Unremarkable Vertebrals: Right is dominant. RIGHT Vertebral: Unremarkable LEFT Vertebral: Unremarkable Anatomy: Patent left posterior communicating. Small vein versus small caliber right posterior communicating artery. Aneurysm or avm: No intracranial aneurysms or large vascular malformations are identified. Anterior cerebral arteries: Unremarkable. Middle cerebral arteries: No large vessel occlusion. Unremarkable. Basilar artery: Unremarkable Posterior cerebral arteries: Small caliber left P1 segment. Otherwise unremarkable. Other major branches of the posterior circulation: Unremarkable. Major venous structures: Unremarkable. Other findings: Neck: No lymphadenopathy. Lungs: Lung apices are clear. Bones: Bones are unremarkable. CT/STROKE CTA Head AND Neck W/Con IMPRESSION: 1. No large vessel occlusion. 2. No aneurysm or stenosis. 3. Patent left posterior communicating artery. Reading Location: [id number]
--- NOTE | 2025-04-18 09:08 | ED.VIS.STROK ---
HPI History of Present Illness Chief Complaint: Stroke Alert Informant: patient Onset/Context/Timing Onset: Today Timing: Continuous Quality and Location: Positive for Right Facial Droop, Right Face Paresthesia and Slurred Speech Onset: 8:25 AM Current Severity: Moderate Maximum Severity: Moderate Associated Symptoms Associated Symptoms: Negative for Headache, Nausea, Vomiting or Chest Pain Narrative Narrative: 69-year-old male with onset of right facial droop and slurred speech around 35 minutes ago at 8:25 A.M. this morning. No prior history. No headache. He is on no blood thinners. Brought in by squad. Stroke team alerted. Prior similar symptoms: No Recent Illness/Hospitalization: No ROS ROS ED ROS Narrative Denies recent illness. Constitutional Constitutional ED: Denies chills or fever(s) Eyes Eyes: Denies blurry vision ENT ENT ED: Denies ear pain Cardiovascular Cardiovascular: Denies chest pain Respiratory/Chest Respiratory/Chest: Denies cough or dyspnea Gastrointestinal Gastrointestinal: Denies abdominal pain Genitourinary Genitourinary ED: Denies dysuria or hematuria Musculoskeletal Musculoskeletal: Denies arthralgias or back pain Integumentary Denies abscess Neurologic Neurologic: Denies headache(s) Psychiatric Psychiatric: Denies anxiety Endocrine Endocrinology: Denies polydipsia Hematologic/Lymphatic Hematologic/Lymphatic: Denies easy bleeding, easy bruising or lymphadenopathy Allergic/Immunologic Allergic/Immunologic ED: Denies mouth swelling or urticaria EXAM Physical Exam Narrative Exam Narrative: 69-year-old male sitting upright on leave specialist cot. That in the ambulance bay. H EENT exam pupils round reactive light he does have right facial droop. He has very mild slurred speech but he is easily understood. H EENT exam pupils round reactive light. Again right facial droop. Neck nontender. No JVD. Lungs clear to auscultation. Heart regular rhythm no murmur. Chest wall nontender. Abdomen soft nontender. 5 out of 5 personal lines insurance agent strength bilaterally. Dorsi plantarflexion intact. His lower extremities he does have 1+ pitting edema. Neurologically right facial droop and mild slurred speech NIH of about 3. Const Vital Signs: 04/18/25 09:06 04/18/25 09:15 04/18/25 09:23 Temperature 98.1 F 98.1 F Temperature Source Oral Oral Pulse Rate 85 86 Respiratory Rate 25 H 20 H Blood Pressure 138/69 H 134/76 H Blood Pressure Mean 92 95 Pulse Ox 93 91 93 Oxygen Delivery Method Nasal Cannula Nasal Cannula Nasal Cannula Oxygen Flow Rate (L/min) 3 3 3 04/18/25 09:36 04/18/25 09:36 04/18/25 09:52 Temperature 97.4 F L 97.1 F L Temperature Source Oral Oral Pulse Rate 80 80 Respiratory Rate 22 H 15 Blood Pressure 144/86 H 144/86 H 136/78 H Blood Pressure Mean 105 105 Pulse Ox 93 93 Oxygen Delivery Method Nasal Cannula Nasal Cannula Oxygen Flow Rate (L/min) 3 3 04/18/25 10:02 04/18/25 10:19 04/18/25 10:33 Temperature 97.5 F L 97.7 F L 97.7 F L Temperature Source Temporal Oral Core Pulse Rate 138 H 86 75 Respiratory Rate 16 20 H 18 Blood Pressure 133/76 H 124/75 H Blood Pressure Mean 95 91 Pulse Ox 92 93 93 Oxygen Delivery Method Nasal Cannula Nasal Cannula Nasal Cannula Oxygen Flow Rate (L/min) 3 3 3 Positive well nourished and well developed; Negative for cachectic, contractures or unkempt General Appearance ED: well developed; Negative for unkempt, cachectic, contractures or NAD Nutritional Appearance: Negative for cachectic HEENT Reports moist mucous membranes atraumatic Eyes PERRL and EOMs intact bilaterally Neck no lymphadenopathy, supple and no JVD Chest Wall inspection of chest normal and palpation of chest normal Resp normal respiratory effort and clear to auscultation bilaterally Cardio no murmurs Rate: regular rate Rhythm: regular rhythm GI normal to inspection, nondistended, normoactive bowel sounds, soft to palpation, non-tender, non-distended and no masses Auscultation: normoactive bowel sounds Palpation: Negative for tender, guarding or rebound tenderness present Back/Spine no CVA tenderness General Back: Negative for CVA tenderness Cervical Spine: Negative for cervical spine tenderness Thoracic Spine / Upper Back: Negative for thoracic spinal tenderness Lumbar Spine / Lower Back: Negative for lumbar spinal tenderness Extremity Negative for normal to inspection Extremity Narrative: Lower extremity edema bilaterally. General Extremety ED: Yes edema General Extremity: edema Neuro oriented x3 Neuro Narrative: Right facial droop. Slurred speech. NIH of 2. Sensorium / Orientation: alert, oriented to person, oriented to place and oriented to time Speech: Negative for speech normal Motor Exam: strength 5/5 throughout Psych mental status grossly normal Appearance: Negative for unkempt Mood & Affect: Negative for depressed, anxious or tearful Skin no wounds General Skin Exam: Negative for jaundice Lesions: no lesions Rashes: no rashes MDM MDM MDM Narrative Medical decision making narrative: 69-year-old male strokelike symptoms with slurred speech and right facial droop occurred about 35 minutes prior to arrival at 8:25 AM. Stroke team protocol. He came and was assessed went immediately to CAT scan and CTA. He would be a thrombolytic candidate at this time. Awaiting return from CAT scan and evaluation by state neurologist. Initial NIH is 3. Repeat exam at 10:25 AM patient is doing much better. He is awake alert. His current NIH is 0. Her slurred speech has resolved as has his right facial droop. That had started more to get better prior to the TNK and is completely resolved now. I went over the test results of both he and his family. I spoke with the hospitalist he will be admitted to the ICU. History & Record Review Discussion w/independent historian: Patient Additional record(s) reviewed:: Prior inpatient record, Prior outpatient record, Prior ED visit and Prior labs Lab Data Attestation: I reviewed the patient's lab results. Lab results narrative: CBC shows a white count of 10.6. H&H is 16 and 50. Platelets 196. PT/INR of 13 and 1. PTT of 26. Electrolytes show a gap 14. BUN 24 creatinine 1.1. Glucose 148. Troponin 10. CT brain no acute abnormality. CTA head and neck chronic changes. Labs: Laboratory Results - last 24 hr 04/18/25 09:10 WBC 10.6 RBC 5.32 Hgb 16.6 H Hct 50.1 MCV 94.2 H MCH 31.2 MCHC 33.1 RDW Std Deviation 53.2 H RDW Coeff of Theodore 15.4 H Plt Count 196 MPV 10.3 Immature Gran % (Auto) 0.900 Neut % (Auto) 62.6 Lymph % (Auto) 24.5 [place] % (Auto) 9.1 Eos % (Auto) 2.2 Baso % (Auto) 0.7 Absolute Neuts (auto) 6.7 Absolute Lymphs (auto) 2.61 Nucleated RBC % 0 PT 13.8 INR 1.0 APTT 26.2 Sodium 139 Potassium 3.6 Chloride 99 Carbon Dioxide 25.1 Anion Gap 14 BUN 24 H Creatinine 1.14 Estim Creat Clear Calc 88.42 Est GFR (MDRD) Non-Af 70 BUN/Creatinine Ratio 21.4 H Glucose 148 H Calcium 9.1 Troponin T High Sens 10 Radiography Diagnostic Testing: Clinical Impression(s) from Imaging Studies Brain CT 04/18/25 09:06 IMPRESSION: CHRONIC CHANGES. NO ACUTE FINDINGS. Red Alert: Nothing acute The critical information above was relayed directly by me by telephone to Jeffy Curiel on 04/18/2025 at 9:20 am with readback verification. Reading Location: [id number] Head/Neck CTA 04/18/25 09:07 IMPRESSION: 1. No large vessel occlusion. 2. No aneurysm or stenosis. 3. Patent left posterior communicating artery. Reading Location: [id number] Rhythm Strip Rhythm Strip: Sinus Rhythm Rate: 75 Ectopy: None EKG Initial EKG: Attestation: I personally reviewed and interpreted this EKG as follows: Interpretation: Sinus Rhythm and No Acute Injury Pattern Comments: Normal sinus rhythm rate of 75 no acute signs of [place] or ischemia. Critical Care Time Critical Care Time: Yes Critical care time (excluding procedures): 30-74 minutes, Including time spent:, Discussing w/Patient &/or Family/Community Engagement Specialist, Discussing w/Consultants, Arranging Admission or Transfer, Performing Direct Patient Care at Bedside and - (40 minutes.) Discharge Plan Dx/Rx/DC Orders Clinical Impression: Stroke, Slurring of speech, Facial droop Disposition Disposition: Acute Care Hospital [facility] NIHSS NIHSS 1a. Level of Consciousness: 0 - Alert; keenly responsive 1b. LOC Questions: 0 - Answers BOTH questions correctly 1c. LOC Commands: 0 - Performs BOTH tasks correctly 2. Best Gaze: 0 - Normal 3. Visual: 0 - No visual loss 4. Facial Palsy: 2 - Partial paralysis (total or near-total paralysis of lower face) 5a. Left Arm: 0 - No drift; arm holds 90 (or 45) degrees for full 10 seconds 5b. Right Arm: 0 - No drift; arm holds 90 (or 45) degrees for full 10 seconds 6a. Left Le - No drift; leg holds 30-degree position for full 5 seconds 6b. Right Le - No drift; leg holds 30-degree position for full 5 seconds 7. Limb Ataxia: 0 - Absent 8. Sensory: 0 - Normal; no sensory loss 9. Best Language: 1 - [id number] aphasia; 10. Dysarthria: 0 - Normal 11. Extinction and Inattention: 0 - No abnormality Total: 3 Stroke Questions Stroke Team Activated: Yes Reviewed Inclusion/Exclusion criteria: Yes
[2025-04-18 09:20] LABS: Hematocrit 50.1 % (40-54); Hemoglobin 16.6 g/dL (13.0-16.5); Immature Granulocytes Count 0.100 X10^3/uL (0.0-0.0); Mean Corp Hgb Conc 33.1 g/dL (32-36); Mean Corpuscular Volume 94.2 fL (80-94); Mean Platelet Vol. 10.3 fl (6.2-12.0); NRBC Flagged by Analyzer 0 % (0-5); Platelet Count 196 K/mm3 (150-450); RBC Distribution Width CV 15.4 % (11.6-14.6); RBC Distribution Width SD 53.2 fl (35.1-43.9); Red Blood Count 5.32 M/mm3 (4.6-6.2); White Blood Count 10.6 K/mm3 (4.4-11.0)
[2025-04-18 09:34] LABS: Prothrombin Time (Protime)PT. 13.8 SECONDS (11.7-14.9)
[2025-04-18 09:35] LABS: Partial Thromboplast Time 26.2 Seconds (24.1-36.2)
[2025-04-18 09:47] LABS: Anion Gap 14 (5-15); BUN 24 mg/dL (4-19); BUN/Creat Ratio 21.4 RATIO (10-20); Calcium,Total 9.1 mg/dL (7.6-11.0); Carbon Dioxide 25.1 mmol/L (21.0-32.0); Chloride 99 mmol/L (98-108); Estimated Creatinine Clearance 88.42 ml/min (50-250); Glucose 148 mg/dL (70-99); Potassium 3.6 mmol/L (3.3-5.1); Troponin T High Sensitivity 10 ng/L (<=22)
[2025-04-18] MEDS: 0.9% Saline Lock 10 ML Syringe IV ×2 (09:51→09:53)
[2025-04-18] MEDS: TENECTEPLASE 1800 MG IV (09:52)
--- NOTE | 2025-04-18 10:38 | PCM.HP.STD ---
HPI - General General Date of Admission: 04/18/25 Date of Service: 04/18/25 Chief Complaint: Slurred speech and right-sided weakness HPI Narrative VIRGINIA NEGRO, is a 69 M who with past medical history significant for dyslipidemia, essential hypertension, seizure disorder who presented with right-sided weakness. Patient symptoms started on the morning of his presentation. He had problem with gripping and noticed some subjective weakness in his right upper extremity as well as some altered sensation in the lower extremity. He also did notice drooping of the right side of his mouth family did notice that the patient speech was slurred. EMS squad was called patient was brought to the emergency department. An assessment of acute CVA was made patient did receive TNK after initial head CT ruled out bleed.. At the time of my assessment patient symptoms had apparently resolved. He was subsequently admitted to the intensive care unit for further management [facility] Medical History (Updated 04/18/25 @ 10:46 by Yaya Negron) Asthma Hyperlipidemia Hypertension Seizure disorder Home Medications ?Medication ?Instructions ?Recorded ?Last Taken ?Type albuterol sulfate 90 mcg/actuation 2 puff inhalation 04/18/25 Unknown History aerosol inhaler atorvastatin 10 mg tablet 10 mg PO QPM 04/18/25 Unknown History fluticasone 100 mcg-salmeterol 50 inhalation 04/18/25 Unknown History mcg/dose blistr powdr for inhalation furosemide 20 mg tablet mg PO 04/18/25 Unknown History furosemide 40 mg tablet mg PO 04/18/25 Unknown History lisinopril 20 1 tab PO DAILY 04/18/25 Unknown History mg-hydrochlorothiazide 25 mg tablet phenytoin sodium extended 100 mg 600 mg PO QPM 04/18/25 Unknown History capsule Allergy/AdvReac Type Severity Reaction Status Date / Time No Known Allergies Allergy Verified 04/18/25 11:27 Social History Smoking Status: Never smoker ROS ROS Narrative GENERAL: denies fever, chills, night sweats, weight loss, anorexia HEENT: denies headache, sinus congestion, or drainage, dysphagia RESPIRATORY: denies cough, sputum production, shortness of breath, dyspnea on exertion CARDIAC: denies chest pain, palpitations, orthopnea, PND GASTROINTESTINAL: denies abdominal pain, nausea, vomiting, melena, GENITOURINARY: denies dysuria, urgency, frequency, heamaturia EXTREMITY: denies swelling MUSCULOSKELETAL: denies current joint pain or tenderness NEUROLOGIC: Right-sided weakness and paresthesias, slurred speech HEMATOLOGIC: denies easy bruising and/or hemorrhage INTEGUMENT: denies rashes PSYCHIATRIC: denies suicidal or homicidal ideation Vital Signs Vital Signs Vital Signs: 04/18/25 09:06 04/18/25 09:15 04/18/25 09:23 Temperature 98.1 F 98.1 F Temperature Source Oral Oral Pulse Rate 85 86 Respiratory Rate 25 H 20 H Blood Pressure 138/69 H 134/76 H Blood Pressure Mean 92 95 Pulse Ox 93 91 93 Oxygen Delivery Method Nasal Cannula Nasal Cannula Nasal Cannula Oxygen Flow Rate (L/min) 3 3 3 04/18/25 09:36 04/18/25 09:36 04/18/25 09:52 Temperature 97.4 F L 97.1 F L Temperature Source Oral Oral Pulse Rate 80 80 Respiratory Rate 22 H 15 Blood Pressure 144/86 H 144/86 H 136/78 H Blood Pressure Mean 105 105 Pulse Ox 93 93 Oxygen Delivery Method Nasal Cannula Nasal Cannula Oxygen Flow Rate (L/min) 3 3 04/18/25 10:02 04/18/25 10:19 04/18/25 10:32 Temperature 97.5 F L 97.7 F L 97.7 F L Temperature Source Temporal Oral Core Pulse Rate 138 H 86 73 Respiratory Rate 16 20 H 20 H Blood Pressure 133/76 H 147/89 H Blood Pressure Mean 95 108 Pulse Ox 92 93 94 Oxygen Delivery Method Nasal Cannula Nasal Cannula Nasal Cannula Oxygen Flow Rate (L/min) 3 3 3 04/18/25 10:33 Temperature 97.7 F L Temperature Source Core Pulse Rate 75 Respiratory Rate 18 Blood Pressure 124/75 H Blood Pressure Mean 91 Pulse Ox 93 Oxygen Delivery Method Nasal Cannula Oxygen Flow Rate (L/min) 3 Weight Weight: 142.5 kg Body Mass Index (BMI) 45.1 Physical Exam Narrative GENERAL: cooperative HEENT: Atraumatic; normocephalic EYES; Anicteric, Normal Conjunctiva NECK; supple, normal thyroid, RESPIRATORY: Diminished to auscultation CARDIOVASCULAR: Regular S1 S2, GI: soft, normoactive bowel sounds, : No Renal angle tenderness; EXTREMITIES: No edema, no clubbing, MUSCULOSKELETAL: no muscle wasting NEURO: Awake; no lateralizing signs. SKIN: No Rash PSYCH; Flat affect Results Lab / Micro Data 04/18/25 09:10 04/18/25 09:10 Labs: Laboratory Results - last 24 hr 04/18/25 09:10: WBC 10.6, RBC 5.32, Hgb 16.6 H, Hct 50.1, MCV 94.2 H, MCH 31.2, MCHC 33.1, RDW Std Deviation 53.2 H, RDW Coeff of Theodore 15.4 H, Plt Count 196, MPV 10.3, Immature Gran % (Auto) 0.900, Neut % (Auto) 62.6, Lymph % (Auto) 24.5, [place] % (Auto) 9.1, Eos % (Auto) 2.2, Baso % (Auto) 0.7, Absolute Neuts (auto) 6.7, Absolute Lymphs (auto) 2.61, Nucleated RBC % 0, PT 13.8, INR 1.0, APTT 26.2, Sodium 139, Potassium 3.6, Chloride 99, Carbon Dioxide 25.1, Anion Gap 14, BUN 24 H, Creatinine 1.14, Estim Creat Clear Calc 88.42, Est GFR (MDRD) Non-Af 70, BUN/Creatinine Ratio 21.4 H, Glucose 148 H, Calcium 9.1, Troponin T High Sens 10 Rhythm Strip Rhythm Strip: Sinus Rhythm Rate: 75 Ectopy: None Imaging Radiology Impression Brain CT 04/18/25 09:06 IMPRESSION: CHRONIC CHANGES. NO ACUTE FINDINGS. Red Alert: Nothing acute The critical information above was relayed directly by me by telephone to Jeffy Curiel on 04/18/2025 at 9:20 am with readback verification. Reading Location: [id number] Head/Neck CTA 04/18/25 09:07 IMPRESSION: 1. No large vessel occlusion. 2. No aneurysm or stenosis. 3. Patent left posterior communicating artery. Reading Location: [id number] Assessment & Plan Assessment/Plan (1) Stroke: PLAN: Plan Patient is a 69-year-old gentleman who presented with sudden onset of right-sided weakness and paresthesias slurred speech and dysarthria. On assessment of acute CVA made patient did receive TNK admitted to the intensive care unit for further management 1. Acute ischemic CVA ? Patient presented with right-sided weakness and paresthesias, slurred speech and dysarthria. Patient did receive TNK. Admitted to the intensive care unit where patient is being managed per protocol. Patient was started on nicardipine drip to keep blood pressure under guideline goals. Also started on atorvastatin. Ordered 2D echo and an MRI has been ordered 24 hours post TNK. Consult was [facility] to [facility] 2. Essential hypertension ? Patient blood pressure control within guidelines 3. Dyslipidemia ?Patient is on statin therapy, continued at home dose 4. Seizure disorder ? Patient has remained seizure-free for several years. Patient is on phenytoin?continue home dose 5. Class III obesity with BMI of 47.2 ? Complicating care weight loss advised 6. DVT prophylaxis ? SCDs only given the fact the patient did receive TNK Time spent in the patient's overall evaluation,decision-making process, review of diagnostic data, adjustment of management, discussion with other providers, nursing nursing and ancillary staff involved in patient's care documentation, 75 Minutes Advance planning; did discuss with the patient and family (patient's son and (regarding advanced directives as well as CODE STATUS. Did explain the various scenarios involved ( FULL CODE, DNR CCA, DNR CCA with no intubation, and DNR CC and what each meant) patient elected to remain full code with CPR and intubation if warranted. Order was placed. Time spent on discussion 16 minutes. Charges/Coding Multi Select Codes Visit Charges Visit Charges: 22834 Init Hosp L3 Hospitalists' Procedures Procedures: 65266 Advncd Care Plan 30 Min
--- NOTE | 2025-04-18 11:26 | ECHOCS_ITS ---
Reason For Study Reason For Study: TIA/CVA Procedure This was a 2D Doppler, Color Flow transthoracic echocardiogram. The study was technically difficult. The study was technically limited. Limited views were obtained. Contrast injection was performed. Exam performed portable in ICU/CCU. Left Ventricle The left ventricle is not well visualized. Normal LV size. Left ventricular systolic function is normal. No regional wall motion abnormalities noted. Right Ventricle The right ventricle is not well visualized. Atria The right atrium is not well visualized. Mitral Valve The mitral valve is structurally normal. No prolapse or stenosis seen. Mild (1+) mitral valve insufficiency. Tricuspid Valve The tricuspid valve is not well visualized. Unable to estimate RV systolic pressure due to inadequate jet, pulmonary artery pressure probably normal. Aortic Valve Normal aortic valve. No aortic valve insufficiency. Medication Diluted definity 4.0ml given slow IV push to enhance endocardial definition. MMode/2D Measurements & Calculations Ao root diam: 4.1 cm LAV(MOD-bp): 64.1 ml LVAd ap4: 26.3 cm2 LAV(MOD-bp) Indexed: 24.8 ml/m2 LVLd ap4: 7.8 cm LAV(MOD-sp2): 62.4 ml EDV(MOD-sp4): 74.7 ml LAV(MOD-sp4): 62.3 ml EDV(sp4-el): 75.0 ml LVAs ap4: 14.9 cm2 LVLs ap4: 5.7 cm ESV(MOD-sp4): 31.9 ml ESV(sp4-el): 32.9 ml EF(MOD-sp4): 57.2 % EF(sp4-el): 56.1 % SV(MOD-sp4): 42.8 ml SV(MOD-sp2): 40.9 ml LVAd ap2: 26.1 cm2 LVLd ap2: 7.8 cm SI(MOD-sp4): 16.6 ml/m2 SI(MOD-sp2): 15.8 ml/m2 EDV(MOD-sp2): 72.3 ml EDV(sp2-el): 74.5 ml LVAs ap2: 14.6 cm2 LVLs ap2: 5.7 cm ESV(MOD-sp2): 31.4 ml ESV(sp2-el): 31.5 ml EF(MOD-sp2): 56.5 % SV(sp4-el): 42.0 ml LA A4 area: 21.5 cm2 LA dimension(2D): 4.9 cm TAPSE: 2.3 cm Time Measurements MV dec time: 0.23 sec Doppler Measurements & Calculations MV E max russel: 62.4 cm/sec Lat Peak E' Russel: 10.0 cm/sec Med Peak E' Russel: 8.2 cm/sec MV A max russel: 76.9 cm/sec E/E' lat: 6.2 E/E' med: 7.6 MV E/A: 0.81 MV V2 max: 73.3 cm/sec MV P1/2t max russel: 56.3 cm/sec Ao V2 max: 135.1 cm/sec MV max P.2 mmHg MV P1/2t: 63.0 msec Ao max P.3 mmHg MV V2 mean: 44.1 cm/sec MV dec slope: 261.8 cm/sec2 Ao V2 mean: 93.3 cm/sec MV mean P.88 mmHg MVA(P1/2t): 3.5 cm2 Ao mean P.8 mmHg MV V2 VTI: 18.5 cm Ao V2 VTI: 26.2 cm AV (velocity ratio): 0.93 LV V1 max: 111.5 cm/sec LV V1 max P.0 mmHg LV V1 mean P.5 mmHg LV V1 mean: 74.0 cm/sec LV V1 VTI: 24.3 cm ECHO/Echo Complete W/ Contrast Interpretation Summary Technically difficult exam, however, in the images visualized, no significant L V dysfunction or valvular abnormality noted. The study was technically difficult. Limited views were obtained. Ordering Physician: Erasmo Nelson Referring Physician: Colton Valenzuela Performed By: Chelle Mondragon RDCS, RVT
[2025-04-18] MEDS: 0.9% Normal Saline (1000mL) 1,000 ML 100 ML IV ×2 (12:16→22:24)
--- NOTE | 2025-04-18 12:38 | ED.RN ---
order for tenectaplase delayed along with pharmacy delivery of rx
--- NOTE | 2025-04-18 12:45 | CON.PCM.CC_ITS ---
HPI Consult Data Date of Consult: 04/18/25 HPI Narrative Reason for Consultation: CVA sp TNK HPI Narrative: 69YM PMH HTN, DLD, seizure disorder who presented this AM with Rt sided weakness and slurred speech. A/W Rt facial droop. CT head without bleed. CTA head/neck without LVO. Tele-stroke assessment completed in the ED and he was given TNK. He was subsequently admitted to the ICU and I was consulted for critical care comanagement. Pt reports significant improvement in previous symptoms and has no current complaints. [facility] Medical History (Updated 04/18/25 @ 10:46 by Yaya Negron) Asthma Hyperlipidemia Hypertension Seizure disorder Home Medications ?Medication ?Instructions ?Recorded ?Last Taken ?Type albuterol sulfate 90 mcg/actuation 2 puff inhalation 0 04/18/25 Unknown History aerosol inhaler atorvastatin 10 mg tablet 10 mg PO QPM 04/18/25 Unknow n History fluticasone 100 mcg-salmeterol 50 inhalation 04/18/25 Unknown History mcg/dose blistr powdr for inhalation furosemide 20 mg tablet mg PO 04/18/25 Unknown Histo ry furosemide 40 mg tablet mg PO 04/18/25 Unknown Histo ry lisinopril 20 1 tab PO DAILY 04/18/25 Unkn own History mg-hydrochlorothiazide 25 mg tablet phenytoin sodium extended 100 mg 600 mg PO QPM 5 Unknown History capsule Allergy/AdvReac Type Severity Reaction Status Date / Time No Known Allergies Allergy Verified 04/18/25 11:27 Social History Smoking Status: Never smoker ROS ROS Narrative Full 12 point ROS completed and neg unless stated in HPI above. Objective Data Objective Data Vital Signs: Vital Signs Last response 3 Temperature 36.3 C L 04/18/25 11:00 Temperature Source Temporal 04/18/25 11:00 Pulse Rate 67 04/18/25 12:15 Respiratory Rate 20 H 04/18/25 12:15 Blood Pressure 130/84 H 04/18/25 12:15 Blood Pressure Mean 99 04/18/25 12:15 Blood Pressure Source Monitor 04/18/25 12:15 Blood Pressure Position Semi-Fowlers 04/18/25 12:15 Blood Pressure Location Right Forearm 04/18/25 12:15 Pulse Ox 94 04/18/25 12:34 Oxygen Delivery Method Nasal Cannula 04/18/25 12:34 Oxygen Flow Rate (L/min) 3 04/18/25 12:34 I&O: I&O Last 24 Hours 3 04/17/25 04/18/25 04/18/25 23:59 11:59 23:59 Output Total 200 / 200 Balance -200 / -200 I&O: Total Stay 3 04/18/25 09:02 thru 04/18/25 12:00 Output Total 200 Balance -200 Current Meds Ordered / Administered: Current meds ordered / Administered 3 Generic Name Dose Route Start Last Admin Trade Name Freq PRN Reason Stop Dose Admin Acetaminophen 650 mg 04/18/25 10:52 Acetaminophen 325 Mg Tablet PO X1 PRN Temp > 99.6 F Acetaminophen 650 mg 04/18/25 11:26 Acetaminophen 325 Mg Tablet PO Q6H PRN PRN Pain 1-10 Or Fever>100.7 Al Hydroxide/Mg Hydroxide 30 ml 04/18/25 11:26 Mag Hydrox/Al Hydrox/Simeth 30 Ml Udc PO Q6H PRN PRN Gastric Burning Atorvastatin Calcium 80 mg 04/18/25 22:00 Atorvastatin Calcium 80 Mg Tablet PO QHS TIFF Diphenhydramine HCl 50 mg 04/18/25 10:52 Diphenhydramine 50 Mg/Ml Syringe IV 04/19/25 10:52 X1 PRN Allergic Reaction Epinephrine HCl 0.3 mg 04/18/25 10:52 Epi Pen (Equiv) 0.3 Mg Syringe IM 04/19/25 10:52 X1 PRN Allergic Reaction Famotidine 20 mg/ Sodium 10 mls @ 300 mls/hr 04/18/25 10:52 Chloride IV 04/19/25 10:52 X1 PRN Allergic Reaction Nicardipine/Sodium Chloride 20 mg in 200 mls @ 50 mls/hr 04/18/25 11:26 04/18/25 12:11 Cardene-Benji 20 Mg/200 Ml Soln CONT INF 04/19/25 11:26 Not Given Q4H TIFF Protocol 5 MG/HR Sodium Chloride 1,000 mls @ 100 mls/hr 04/18/25 11:26 04/18/25 12:16 IV 100 mls/hr .Q10H TIFF Administration Labetalol HCl 20 mg 04/18/25 09:06 Labetalol 20 Mg/4 Ml Vial IV 04/19/25 09:06 X1 PRN BLOOD PRESSURE Labetalol HCl 20 mg 04/18/25 10:52 Labetalol 20 Mg/4 Ml Vial IV 04/19/25 10:52 X1 PRN BLOOD PRESSURE Methylprednisolone Sodium Succinate 125 mg 04/18/25 10:52 Methylprednisolone 125 Mg/2 Ml Vial IV 04/19/25 10:52 X1 PRN Allergic Reaction Ondansetron HCl 4 mg 04/18/25 11:26 Ondansetron 4 Mg/2 Ml Vial IV Q8H PRN PRN NAUSEA/VOMITING Phenytoin Sodium 600 mg 04/18/25 21:00 Phenytoin Na 100 Mg Capsule PO QPM TIFF Senna/Docusate Sodium 2 tablet 04/18/25 11:26 Senna/Docusate Sodium 1 Tablet PO BID PRN PRN Constipation Sodium Chloride 10 - 40 ml 04/18/25 10:07 04/18/25 09:53 0.9% Saline Lock 10 Ml Syringe IV 10 ml UD PRN Administration SALINE FLUSH Sodium Chloride 10 ml 04/18/25 10:52 0.9% Saline Lock 10 Ml Syringe IV UD PRN Before/After Tenecteplase Administration Sodium Chloride 10 - 40 ml 04/18/25 11:34 0.9% Saline Lock 10 Ml Syringe IV UD PRN SALINE FLUSH Lab / Micro Data 04/18/25 09:10 04/18/25 09:10 Labs: Laboratory Results - last 24 hr 04/18/25 09:10: WBC 10.6, RBC 5.32, Hgb 16.6 H, Hct 50.1, MCV 94.2 H, MCH 31.2, MCHC 33.1, RDW Std Deviation 53.2 H, RDW Coeff of Theodore 15.4 H, Plt Count 196, MPV 10.3, Immature Gran % (Auto) 0.900, Neut % (Auto) 62.6, Lymph % (Auto) 24.5, [place] % (Auto) 9.1, Eos % (Auto) 2.2, Baso % (Auto) 0.7, Absolute Neuts (auto) 6.7, Absolute Lymphs (auto) 2.61, Nucleated RBC % 0, PT 13.8, INR 1.0, APTT 26.2, Sodium 139, Potassium 3.6, Chloride 99, Carbon Dioxide 25.1, Anion Gap 14, BUN 24 H, Creatinine 1.14, Estim Creat Clear Calc 88.42, Est GFR (MDRD) Non-Af 70, BUN/Creatinine Ratio 21.4 H, Glucose 148 H, Calcium 9.1, Troponin T High Sens 10 Rhythm Strip Rhythm Strip: Sinus Rhythm Rate: 75 Ectopy: None Imaging Radiology Impression Brain CT 04/18/25 09:06 IMPRESSION: CHRONIC CHANGES. NO ACUTE FINDINGS. Red Alert: Nothing acute The critical information above was relayed directly by me by telephone to Jeffy Curiel on 04/18/2025 at 9:20 am with readback verification. Reading Location: [id number] Head/Neck CTA 04/18/25 09:07 IMPRESSION: 1. No large vessel occlusion. 2. No aneurysm or stenosis. 3. Patent left posterior communicating artery. Reading Location: [id number] Assessment and Plan . Assessment and plan: PE: General: Well developed, in no distress HEENT: anicteric Sclera, nl nose; supple neck, no masses Cardiovascular: S1/S2; No rubs, gallops; no displaced PM Respiratory: diminished; no crackles, wheezes, or rhonchi Abdominal: Non-tender; Non distended; hypoBS x 4; No Hepatosplenomegaly Extremities: Warm, well perfused; No clubbing, cyanosis; capillary refill < 2 sec Skin: intact, no rashes Neurological: A&Ox3; no appreciate weakness; no other gross deficits appreciated A/P #Acute CVA sp TNK #HTN #DLD #Morbid obesity -Cont ICU for close neuro monitoring; repeat CT in 24h -Maintain SBP < 180 and avoid fluctuations -Maintain serum sodium between 135-145 -Maintain CBG 140-180 -MRI and echo with bubble -ASA/statin after 24h -PT/OT/ST -NPO until swallow eval/WINERY CELLAR HAND consult -Neuro F/U Critical Care Time: 60 min The entirety of this encounter was done via Telemedicine
[2025-04-18 13:10] LABS: Cholesterol 187 mg/dL (<=200); Low Density Lipoprotein Calc. 83 mg/dL; Triglycerides 152 mg/dL; Very Low Density Lipoprotein 30 mg/dL (5-40); cholesterol:hdl ratio screen 2.53
[2025-04-18] MEDS: Phenytoin Na 100 MG Capsule 600 MG PO (21:17)
[2025-04-19] VITALS (19 sets, daily range): BP systolic 93–151; BP diastolic 67–91; PULSE 66–87; RESP 14–22; TEMP 36.4–36.9; O2SAT 84–95; BMI 48.1
[2025-04-19 05:03] LABS: Hematocrit 47.7 % (40-54); Hemoglobin 15.7 g/dL (13.0-16.5); Immature Granulocytes Count 0.080 X10^3/uL (0.0-0.0); Mean Corp Hgb Conc 32.9 g/dL (32-36); Mean Corpuscular Volume 94.5 fL (80-94); Mean Platelet Vol. 10.4 fl (6.2-12.0); NRBC Flagged by Analyzer 0 % (0-5); Platelet Count 176 K/mm3 (150-450); RBC Distribution Width CV 15.1 % (11.6-14.6); RBC Distribution Width SD 52.4 fl (35.1-43.9); Red Blood Count 5.05 M/mm3 (4.6-6.2); White Blood Count 9.8 K/mm3 (4.4-11.0)
[2025-04-19 05:29] LABS: Magnesium 2.1 mg/dL (1.5-2.2)
[2025-04-19 05:32] LABS: Anion Gap 10 (5-15); BUN 14 mg/dL (4-19); BUN/Creat Ratio 16.7 RATIO (10-20); Calcium,Total 8.9 mg/dL (7.6-11.0); Carbon Dioxide 26.9 mmol/L (21.0-32.0); Chloride 101 mmol/L (98-108); Estimated Creatinine Clearance 126.44 ml/min (50-250); Glucose 114 mg/dL (70-99); Potassium 3.8 mmol/L (3.3-5.1)
--- NOTE | 2025-04-19 08:31 | PN.HOSP_ITS ---
Reason for Visit Chief Complaint: Slurred speech and right-sided weakness Subjective Subjective Patient seen denies any focal deficit no numbness. Scheduled to undergo post TNK 24-hour MRI evaluation. Objective Data Objective Data Vital Signs: Vital Signs Temp Pulse Resp BP Pulse Ox O2 Del Method O2 Flow Rate 97.6 F L 67 19 H 132/84 H 95 Nasal Cannula 5 04/19/25 01:00 04/19/25 07:00 04/19/25 07:00 04/19/25 07:00 04/19/25 07:00 04/19/25 07:00 04/19/25 07:00 Oxygen Flow Rate (L/min) 5 Oxygen Delivery Method Nasal Cannula Weight: 152.4 kg Body Mass Index (BMI) 48.1 Intake & Output: Intake and Output for Last 24 Hours 04/17/25 04/18/25 04/19/25 23:59 23:59 23:59 Intake Total 1480 / 1480 Output Total 2575 / 2575 1900 / 1900 Balance -1095 / -1095 -1900 / -1900 Lab / Micro Data 04/19/25 04:54 04/19/25 04:54 Labs: Laboratory Results - last 24 hr 04/18/25 09:10: WBC 10.6, RBC 5.32, Hgb 16.6 H, Hct 50.1, MCV 94.2 H, MCH 31.2, MCHC 33.1, RDW Std Deviation 53.2 H, RDW Coeff of Theodore 15.4 H, Plt Count 196, MPV 10.3, Immature Gran % (Auto) 0.900, Neut % (Auto) 62.6, Lymph % (Auto) 24.5, [place] % (Auto) 9.1, Eos % (Auto) 2.2, Baso % (Auto) 0.7, Absolute Neuts (auto) 6.7, Absolute Lymphs (auto) 2.61, Nucleated RBC % 0, PT 13.8, INR 1.0, APTT 26.2, Sodium 139, Potassium 3.6, Chloride 99, Carbon Dioxide 25.1, Anion Gap 14, BUN 24 H, Creatinine 1.14, Estim Creat Clear Calc 88.42, Est GFR (MDRD) Non-Af 70, BUN/Creatinine Ratio 21.4 H, Glucose 148 H, Hemoglobin A1c 5.9 H, Calcium 9.1, Troponin T High Sens 10, Triglycerides 152, Cholesterol 187, LDL Cholesterol, Calc 83, VLDL Cholesterol 30, HDL Cholesterol 74, Cholesterol/HDL Ratio 2.53 04/19/25 04:54: WBC 9.8, RBC 5.05, Hgb 15.7, Hct 47.7, MCV 94.5 H, MCH 31.1, MCHC 32.9, RDW Std Deviation 52.4 H, RDW Coeff of Theodore 15.1 H, Plt Count 176, MPV 10.4, Immature Gran % (Auto) 0.800, Neut % (Auto) 69.8, Lymph % (Auto) 16.5 L, M patrica % (Auto) 10.5 H, Eos % (Auto) 2.0, Baso % (Auto) 0.4, Absolute Neuts (auto) 6.8, Absolute Lymphs (auto) 1.61, Nucleated RBC % 0, Sodium 138, Potassium 3.8, Chloride 101, Carbon Dioxide 26.9, Anion Gap 10, BUN 14, Creatinine 0.82, Estim Creat Clear Calc 126.44, Est GFR (MDRD) Non-Af 96, BUN/Creatinine Ratio 16.7, G lucose 114 H, Calcium 8.9, Phosphorus 3.0, Magnesium 2.1, TSH 2.320 Radiography Diagnostic Testing: Radiology Impression Brain CT 04/18/25 09:06 IMPRESSION: CHRONIC CHANGES. NO ACUTE FINDINGS. Red Alert: Nothing acute The critical information above was relayed directly by me by telephone to Jeffy Curiel on 04/18/2025 at 9:20 am with readback verification. Reading Location: [id number] Head/Neck CTA 04/18/25 09:07 IMPRESSION: 1. No large vessel occlusion. 2. No aneurysm or stenosis. 3. Patent left posterior communicating artery. Reading Location: [id number] Rhythm Strip Rhythm Strip: Sinus Rhythm Rate: 75 Ectopy: None Physical Exam Narrative GENERAL: cooperative HEENT: Atraumatic; normocephalic EYES; Anicteric, Normal Conjunctiva NECK; supple, normal thyroid, RESPIRATORY: Diminished to auscultation CARDIOVASCULAR: Regular S1 S2, GI: soft, normoactive bowel sounds, : No Renal angle tenderness; EXTREMITIES: No edema, no clubbing, MUSCULOSKELETAL: no muscle wasting NEURO: Awake; no lateralizing signs. SKIN: No Rash PSYCH; Flat affect Assessment & Plan Assessment/Plan (1) Stroke: PLAN: Plan Patient is a 69-year-old gentleman who presented with sudden onset of right- sided weakness and paresthesias slurred speech and dysarthria. On assessment of acute CVA made patient did receive TNK admitted to the intensive care unit for further management 1. Acute ischemic CVA ? Patient presented with right-sided weakness and paresthesias, slurred speech and dysarthria. Patient did receive TNK. Admitted to the intensive care unit where patient is being managed per protocol. Patient was started on nicardipine drip to keep blood pressure under guideline goals. Also started on atorvastatin. Ordered 2D echo and an MRI has been ordered 24 hours post TNK. Consult was [facility] to [facility] ? 04/19/2025 : Patient seen denies any focal deficit no numbness. Scheduled to undergo post TNK 24-hour MRI evaluation. 2. Essential hypertension ? Patient blood pressure control within guidelines 3. Dyslipidemia ?Patient is on statin therapy, continued at home dose 4. Seizure disorder ? Patient has remained seizure-free for several years. Patient is on phenytoin?continue home dose 5. Class III obesity with BMI of 47.2 ? Complicating care weight loss advised 6. DVT prophylaxis ? SCDs only given the fact the patient did receive TNK Time spent in the patient's overall evaluation,decision-making process, review of diagnostic data, adjustment of management, discussion with other providers, nursing nursing and ancillary staff involved in patient's care documentation, 40 Minutes Charges/Coding Visit Charges Inpatient E&M: 28201 Subs Hosp L2 NIHSS NIHSS Nursing Documentation NIHSS Nursing Documentation: NIHSS: Ischemic Stroke/TIA Start: 04/18/25 11:50 Freq: Q1H Status: Active Protocol: Activity Type Activity Date Activity User E-sign Co-sign Detail Recorded Client Recorded Date Recorded By Document 04/19/25 07:00 [id number] 04/19/25 07:15 GW 04/19/25 07:00 NIH Stroke Scale [NIHSS] A score of 0 is normal or asymptomatic . Total possible score is 42. Inpatient: RN or Physician to activate a stroke alert for onset of new stroke symptoms or with NIHSS increase >/= 3 points. Following change in neurological status, NIHSS will be performed per physician order or more frequently PRN. -1a. Level of Consciousness 0 - Alert; keenly responsive -1b. LOC Questions 0 - Answers BOTH questions correctly -1c. LOC Commands 0 - Performs BOTH tasks correctly -2. Best Gaze 0 - Normal -3. Visual 0 - No visual loss -4. Facial Palsy 0 - Normal symmetrical movements -5a. Left Arm 0 - No drift; arm holds 90 ( or 45) degrees for full 10 seconds -5b. Right Arm 0 - No drift; arm holds 90 ( or 45) degrees for full 10 seconds -6a. Left Leg 0 - No drift; leg holds 30- degree position for full 5 seconds -6b. Right Leg 0 - No drift; leg holds 30- degree position for full 5 seconds -7. Limb Ataxia 0 - Absent -8. Sensory 0 - Normal; no sensory loss -9. Best Language 0 - No aphasia; normal -10. Dysarthria 0 - Normal -11. Extinction and Inattention 0 - No abnormality -Total 0 Query Text:A score of 0 is normal or asymptomatic. Total possible score is 42 . ED: Notify Physician for NIHSS increase by > / = 3 points. Inpatient: RN or Physician to activate a stroke alert for NIHSS increase of > / = 3 points.
--- NOTE | 2025-04-19 10:00 | MRI_ITS ---
EXAM: BRAIN WITHOUT CONTRAST CLINICAL HISTORY: ACUTE CVA 24HRS AFTER TENECTEPLASE ADMINISTRATION . COMPARISON: None. TECHNIQUE: Multiplanar, multisequence MR images of the brain were obtained without gadolinium contrast material. Motion is noted. FINDINGS: No intracranial hemorrhage, mass, mass effect, midline shift or pathologic extra- axial fluid collection. No hydrocephalus. There is abnormal increased T2 and FLAIR signal most severe in the deep white matter in the right and left posterior occipital periventricular region, consistent with chronic ischemic change. There is focal restricted diffusion in the right superior parietal lobe on a single image only, 25/28, which may be artifact. No gradient signal blooming artifacts are identified. No cerebellar tonsillar ectopia. No sellar/suprasellar signal abnormalities. The ocular globes and intraorbital soft tissues are symmetrically unremarkable. Mucosal thickening is visible in the floor of the left maxillary sinus. There is fluid signal in a portion of the right mastoid air cells. MRI/Brain without Contrast IMPRESSION: There is abnormal increased T2 and FLAIR signal most severe in the deep white m atter in the right and left posterior occipital periventricular region, consistent with chronic ischemic change. There is focal restricted diffusion in the right superior parietal lobe on a si ngle image only, 25/28, which may be artifact secondary to motion. Clinical correlation is recommended. Mucosal thickening is visible in the floor of the left maxillary sinus. There is fluid signal in a portion of the right mastoid air cells. Reading Location: [facility]
--- NOTE | 2025-04-19 12:22 | NEURO.CONS ---
Assessment and Plan: Neuro Assessment/Plan VIRGINIA NEGRO III is a 69 M with a past medical history of HLD, HTN, seizure, obesity who presented with an acute onset of R sided weakness, facial droop and slurred speech. NIHSS over telestroke was 4, s/p TNK. CTA with no LVO. NIHSS today is 0 Diagnosis: TIA Plan: Brain MRI was reviewed, no stroke on the L side of the brain. There is a focal diffusion restriction in the R superior parietal lobe on single image reported by the radiologist. This dose not correlate with his symptoms and suggest an artifact Start ASA 81 mg qd for secondary stroke prevention Continue atorvastatin for secondary stroke prevention, LDL goal <70 Check A1c Please target normal blood pressure Follow up on TTE PT/OT/PATIENT CARE SPECIALIST evaluation Follow up in Neurology clinic in 4-6 weeks following discharge Stroke education and risk factor modification I personally attended this patient and spent a total time of 36 minutes evaluating this patient including clinical assessment, review of chart, medical history imaging, and determining appropriate treatment and workup. HPI Consult Data Date of Consult: 04/19/25 HPI Narrative HPI Narrative: VIRGINIA NEGRO is a 69 M with a hx of HLD, HTN, seizure, obesity who presented with an acute onset of R sided weakness, facial droop and slurred speech. NIHSS over telestroke was 4, s/p TNK. CTA with no LVO. Admitted to ICU for close observation following the [facility], [facility] Medical History (Updated 04/18/25 @ 10:46 by Yaya Negron) Asthma Hyperlipidemia Hypertension Seizure disorder Home Medications ?Medication ?Instructions ?Recorded ?Last Taken ?Type albuterol sulfate 90 mcg/actuation 2 puff inhalation Q4H PRN 04/18/25 Unknown History aerosol inhaler shortness of breath or wheezing atorvastatin 10 mg tablet 10 mg PO QPM 04/18/25 Unknown History fluticasone 100 mcg-salmeterol 50 1 inh inhalation Q12H md ordered 04/18/25 Unknown History mcg/dose blistr powdr for inhalation furosemide 20 mg tablet 20 mg PO QODAY md ordered 04/18/25 Unknown History furosemide 40 mg tablet 40 mg PO QODAY md ordered 04/18/25 Unknown History lisinopril 20 1 tab PO DAILY 04/18/25 Unknown History mg-hydrochlorothiazide 25 mg tablet phenytoin sodium extended 100 mg 600 mg PO QPM 04/18/25 Unknown History capsule Allergy/AdvReac Type Severity Reaction Status Date / Time No Known Allergies Allergy Verified 04/18/25 11:27 Social History Smoking Status: Never smoker Vital Signs Vital Signs Vital Signs: 04/18/25 12:34 04/18/25 12:45 04/18/25 13:15 Temperature Temperature Source Pulse Rate 70 72 Respiratory Rate 18 15 Respiratory Effort Respiratory Depth Respiratory Pattern Blood Pressure 126/37 H 118/79 Blood Pressure Mean 66 92 Blood Pressure Source Monitor Monitor Blood Pressure Position Semi-Fowlers Semi-Fowlers Blood Pressure Location Right Forearm Right Forearm Pulse Ox 94 94 95 Oxygen Delivery Method Nasal Cannula Nasal Cannula Nasal Cannula Oxygen Flow Rate (L/min) 3 3 3 04/18/25 13:30 04/18/25 14:00 04/18/25 14:30 Temperature Temperature Source Pulse Rate 71 67 69 Respiratory Rate 16 18 22 H Respiratory Effort Respiratory Depth Respiratory Pattern Blood Pressure 107/80 118/93 H 127/84 H Blood Pressure Mean 89 101 98 Blood Pressure Source Monitor Monitor Monitor Blood Pressure Position Semi-Fowlers Semi-Fowlers Semi-Fowlers Blood Pressure Location Right Forearm Right Forearm Right Forearm Pulse Ox 94 94 93 Oxygen Delivery Method Nasal Cannula Nasal Cannula Nasal Cannula Oxygen Flow Rate (L/min) 3 3 3 04/18/25 15:00 04/18/25 15:30 04/18/25 16:00 Temperature Temperature Source Pulse Rate 67 68 65 Respiratory Rate 15 20 H 18 Respiratory Effort Respiratory Depth Respiratory Pattern Blood Pressure 122/78 H 126/77 H 127/84 H Blood Pressure Mean 92 93 98 Blood Pressure Source Monitor Monitor Monitor Blood Pressure Position Semi-Fowlers Semi-Fowlers Semi-Fowlers Blood Pressure Location Right Forearm Right Forearm Right Forearm Pulse Ox 94 94 95 Oxygen Delivery Method Nasal Cannula Nasal Cannula Nasal Cannula Oxygen Flow Rate (L/min) 3 3 3 04/18/25 16:30 04/18/25 17:00 04/18/25 17:34 Temperature Temperature Source Pulse Rate 69 70 Respiratory Rate 20 H 19 H Respiratory Effort Respiratory Depth Respiratory Pattern Blood Pressure 124/90 H 127/80 H Blood Pressure Mean 101 95 Blood Pressure Source Monitor Monitor Blood Pressure Position Semi-Fowlers Semi-Fowlers Blood Pressure Location Right Forearm Right Forearm Pulse Ox 94 94 94 Oxygen Delivery Method Nasal Cannula Nasal Cannula Nasal Cannula Oxygen Flow Rate (L/min) 3 3 3 04/18/25 18:00 04/18/25 19:00 04/18/25 19:20 Temperature Temperature Source Pulse Rate 69 70 Respiratory Rate 16 15 Respiratory Effort Normal Non-Labored Respiratory Depth Normal Respiratory Pattern Normal Blood Pressure 137/94 H 140/85 H Blood Pressure Mean 108 103 Blood Pressure Source Monitor Monitor Blood Pressure Position Semi-Fowlers Semi-Fowlers Blood Pressure Location Right Forearm Right Forearm Pulse Ox 93 94 Oxygen Delivery Method Nasal Cannula Nasal Cannula Oxygen Flow Rate (L/min) 3 3 04/18/25 20:00 04/18/25 20:00 04/18/25 21:00 Temperature 97.2 F L Temperature Source Temporal Pulse Rate 68 68 69 Respiratory Rate 23 H 19 H Respiratory Effort Respiratory Depth Respiratory Pattern Blood Pressure 126/91 H 130/85 H Blood Pressure Mean 102 100 Blood Pressure Source Monitor Monitor Blood Pressure Position Blood Pressure Location Pulse Ox 95 95 Oxygen Delivery Method Nasal Cannula Nasal Cannula Oxygen Flow Rate (L/min) 3 3 04/18/25 22:00 04/18/25 23:00 04/19/25 00:00 Temperature Temperature Source Pulse Rate 71 68 67 Respiratory Rate 22 H 20 H 17 Respiratory Effort Respiratory Depth Respiratory Pattern Blood Pressure 127/85 H 125/75 H 151/91 H Blood Pressure Mean 99 91 111 Blood Pressure Source Monitor Monitor Monitor Blood Pressure Position Blood Pressure Location Pulse Ox 95 96 95 Oxygen Delivery Method Nasal Cannula Nasal Cannula Nasal Cannula Oxygen Flow Rate (L/min) 3 3 3 04/19/25 00:00 04/19/25 00:00 04/19/25 01:00 Temperature 97.6 F L Temperature Source Temporal Pulse Rate 70 71 Respiratory Rate 19 H Respiratory Effort Normal Non-Labored Respiratory Depth Normal Respiratory Pattern Normal Blood Pressure 131/79 H Blood Pressure Mean 96 Blood Pressure Source Monitor Blood Pressure Position Blood Pressure Location Pulse Ox 95 Oxygen Delivery Method Nasal Cannula Oxygen Flow Rate (L/min) 3 04/19/25 02:00 04/19/25 03:00 04/19/25 04:00 Temperature Temperature Source Pulse Rate 66 73 68 Respiratory Rate 16 19 H 19 H Respiratory Effort Respiratory Depth Respiratory Pattern Blood Pressure 128/77 H 93/67 150/80 H Blood Pressure Mean 94 75 103 Blood Pressure Source Monitor Monitor Monitor Blood Pressure Position Blood Pressure Location Pulse Ox 94 95 95 Oxygen Delivery Method Nasal Cannula Nasal Cannula Nasal Cannula Oxygen Flow Rate (L/min) 3 3 3 04/19/25 04:00 04/19/25 04:00 04/19/25 05:00 Temperature Temperature Source Pulse Rate 68 70 Respiratory Rate 17 Respiratory Effort Normal Non-Labored Respiratory Depth Normal Respiratory Pattern Normal Blood Pressure 131/84 H Blood Pressure Mean 99 Blood Pressure Source Monitor Blood Pressure Position Blood Pressure Location Pulse Ox 94 Oxygen Delivery Method Nasal Cannula Oxygen Flow Rate (L/min) 3 04/19/25 06:00 04/19/25 07:00 04/19/25 08:00 Temperature Temperature Source Pulse Rate 69 67 68 Respiratory Rate 18 19 H Respiratory Effort Respiratory Depth Respiratory Pattern Blood Pressure 136/88 H 132/84 H Blood Pressure Mean 104 100 Blood Pressure Source Monitor Monitor Blood Pressure Position Blood Pressure Location Pulse Ox 95 95 Oxygen Delivery Method Nasal Cannula Nasal Cannula Oxygen Flow Rate (L/min) 3 5 04/19/25 08:00 04/19/25 08:00 04/19/25 09:00 Temperature 98.4 F Temperature Source Core Pulse Rate 68 76 Respiratory Rate 18 22 H Respiratory Effort Normal Non-Labored Respiratory Depth Normal Respiratory Pattern Normal Blood Pressure 126/83 H 134/71 H Blood Pressure Mean 97 92 Blood Pressure Source Monitor Monitor Blood Pressure Position Semi-Fowlers Semi-Fowlers Blood Pressure Location Right Arm Right Arm Pulse Ox 92 92 Oxygen Delivery Method Nasal Cannula Nasal Cannula Nasal Cannula Oxygen Flow Rate (L/min) 2 2 2 04/19/25 10:00 04/19/25 10:10 04/19/25 11:00 Temperature Temperature Source Pulse Rate 73 73 76 Respiratory Rate 20 H 20 H 19 H Respiratory Effort Respiratory Depth Respiratory Pattern Blood Pressure 127/78 H 136/71 H 130/78 H Blood Pressure Mean 94 92 95 Blood Pressure Source Monitor Monitor Monitor Blood Pressure Position Supine Supine Semi-Fowlers Blood Pressure Location Right Forearm Right Forearm Right Forearm Pulse Ox 93 93 93 Oxygen Delivery Method Nasal Cannula Nasal Cannula Nasal Cannula Oxygen Flow Rate (L/min) 4 4 2 Weight Weight: 152.4 kg Body Mass Index (BMI) 48.1 Physical Exam Narrative Patient is awake and alert follows commands, EOMI, symmetric face, no drifts, no dysmetria, sensation intact to LT, clear speech, no aphasia Lab / Micro Data 04/19/25 04:54 04/19/25 04:54 Labs: Laboratory Results - last 24 hr 04/18/25 09:10: Hemoglobin A1c 5.9 H, Triglycerides 152, Cholesterol 187, LDL Cholesterol, Calc 83, VLDL Cholesterol 30, HDL Cholesterol 74, Cholesterol/HDL Ratio 2.53 04/19/25 04:54: WBC 9.8, RBC 5.05, Hgb 15.7, Hct 47.7, MCV 94.5 H, MCH 31.1, MCHC 32.9, RDW Std Deviation 52.4 H, RDW Coeff of Theodore 15.1 H, Plt Count 176, MPV 10.4, Immature Gran % (Auto) 0.800, Neut % (Auto) 69.8, Lymph % (Auto) 16.5 L, [place] % (Auto) 10.5 H, Eos % (Auto) 2.0, Baso % (Auto) 0.4, Absolute Neuts (auto) 6.8, Absolute Lymphs (auto) 1.61, Nucleated RBC % 0, Sodium 138, Potassium 3.8, Chloride 101, Carbon Dioxide 26.9, Anion Gap 10, BUN 14, Creatinine 0.82, Estim Creat Clear Calc 126.44, Est GFR (MDRD) Non-Af 96, BUN/Creatinine Ratio 16.7, Glucose 114 H, Calcium 8.9, Phosphorus 3.0, Magnesium 2.1, TSH 2.320 Rhythm Strip Rhythm Strip: Sinus Rhythm Rate: 75 Ectopy: None Imaging Radiology Impression Echocardiogram 04/18/25 11:26 Interpretation Summary Technically difficult exam, however, in the images visualized, no significant LV dysfunction or valvular abnormality noted. The study was technically difficult. Limited views were obtained. Ordering Physician: Erasmo Nelson Referring Physician: Colton Valenzuela Performed By: Chelle Mondragon, HANY, RVT Brain MRI 04/19/25 10:00 IMPRESSION: There is abnormal increased T2 and FLAIR signal most severe in the deep white matter in the right and left posterior occipital periventricular region, consistent with chronic ischemic change. There is focal restricted diffusion in the right superior parietal lobe on a single image only, , which may be artifact secondary to motion. Clinical correlation is recommended. Mucosal thickening is visible in the floor of the left maxillary sinus. There is fluid signal in a portion of the right mastoid air cells. Reading Location: [facility] Active Medications Active Medications Active Medications: Current Medications Generic Name Dose Route Start Last Admin Trade Name Freq PRN Reason Stop Dose Admin Acetaminophen 650 mg 04/18/25 10:52 Acetaminophen 325 Mg Tablet PO X1 PRN Temp > 99.6 F Acetaminophen 650 mg 04/18/25 11:26 04/18/25 19:23 Acetaminophen 325 Mg Tablet PO 650 mg Q6H PRN PRN Administration Pain 1-10 Or Fever>100.7 Al Hydroxide/Mg Hydroxide 30 ml 04/18/25 11:26 Mag Hydrox/Al Hydrox/Simeth 30 Ml Udc PO Q6H PRN PRN Gastric Burning Albuterol Sulfate 2.5 mg 04/19/25 07:45 Albuterol 2.5 Mg/3 Ml Vial.Neb. INHALATION Q4H PRN shortness of breath or wheezing Atorvastatin Calcium 80 mg 04/18/25 22:00 04/18/25 21:17 Atorvastatin Calcium 80 Mg Tablet PO 80 mg QHS TIFF Administration Budesonide 0.5 mg 04/19/25 08:00 Budesonide Respules 0.5 Mg/2 Ml Ampul.Neb. INHALATION Q12H.RT TIFF Ondansetron HCl 4 mg 04/18/25 11:26 Ondansetron 4 Mg/2 Ml Vial IV Q8H PRN PRN NAUSEA/VOMITING Phenytoin Sodium 600 mg 04/18/25 21:00 04/18/25 21:17 Phenytoin Na 100 Mg Capsule PO 600 mg QPM TIFF Administration Senna/Docusate Sodium 2 tablet 04/18/25 11:26 Senna/Docusate Sodium 1 Tablet PO BID PRN PRN Constipation Sodium Chloride 10 - 40 ml 04/18/25 10:07 04/18/25 09:53 0.9% Saline Lock 10 Ml Syringe IV 10 ml UD PRN Administration SALINE FLUSH Sodium Chloride 10 ml 04/18/25 10:52 0.9% Saline Lock 10 Ml Syringe IV UD PRN Before/After Tenecteplase Administration Sodium Chloride 10 - 40 ml 04/18/25 11:34 0.9% Saline Lock 10 Ml Syringe IV UD PRN SALINE FLUSH NIHSS NIHSS Nursing Documentation NIHSS Nursing Documentation: NIHSS: Ischemic Stroke/TIA Start: 04/18/25 11:50 Freq: Q1H Status: Active Protocol: Activity Type Activity Date Activity User E-sign Co-sign Detail Recorded Client Recorded Date Recorded By Document 04/19/25 12:00 RV [id number] 04/19/25 12:17 RV 04/19/25 12:00 NIH Stroke Scale [NIHSS] A score of 0 is normal or asymptomatic . Total possible score is 42. Inpatient: RN or Physician to activate a stroke alert for onset of new stroke symptoms or with NIHSS increase >/= 3 points. Following change in neurological status, NIHSS will be performed per physician order or more frequently PRN. -1a. Level of Consciousness 0 - Alert; keenly responsive -1b. LOC Questions 0 - Answers BOTH questions correctly -1c. LOC Commands 0 - Performs BOTH tasks correctly -2. Best Gaze 0 - Normal -3. Visual 0 - No visual loss -4. Facial Palsy 0 - Normal symmetrical movements -5a. Left Arm 0 - No drift; arm holds 90 ( or 45) degrees for full 10 seconds -5b. Right Arm 0 - No drift; arm holds 90 ( or 45) degrees for full 10 seconds -6a. Left Leg 0 - No drift; leg holds 30- degree position for full 5 seconds -6b. Right Leg 0 - No drift; leg holds 30- degree position for full 5 seconds -7. Limb Ataxia 0 - Absent -8. Sensory 0 - Normal; no sensory loss -9. Best Language 0 - No aphasia; normal -10. Dysarthria 0 - Normal -11. Extinction and Inattention 0 - No abnormality -Total 0 Query Text:A score of 0 is normal or asymptomatic. Total possible score is 42 . ED: Notify Physician for NIHSS increase by > / = 3 points. Inpatient: RN or Physician to activate a stroke alert for NIHSS increase of > / = 3 points. NIHSS 1b. LOC Questions: 0 - Answers BOTH questions correctly 1c. LOC Commands: 0 - Performs BOTH tasks correctly 2. Best Gaze: 0 - Normal 3. Visual: 0 - No visual loss 4. Facial Palsy: 0 - Normal symmetrical movements 5a. Left Arm: 0 - No drift; arm holds 90 (or 45) degrees for full 10 seconds 5b. Right Arm: 0 - No drift; arm holds 90 (or 45) degrees for full 10 seconds 6a. Left Le - No drift; leg holds 30-degree position for full 5 seconds 6b. Right Le - No drift; leg holds 30-degree position for full 5 seconds 7. Limb Ataxia: 0 - Absent 8. Sensory: 0 - Normal; no sensory loss 9. Best Language: 0 - No aphasia; normal 10. Dysarthria: 0 - Normal 11. Extinction and Inattention: 0 - No abnormality Total: 0
--- NOTE | 2025-04-19 12:52 | CASEMGMT ---
SRINI CRUZ Assessment Face to Face with patient for initial transition planning/care coordination assessment. SRINI CRUZ introduced self and role at [facility], pt voices understanding. Pt is A&Ox4 and is sitting up in the chair with his son and daughter at bedside. Care providers, pharmacy, and demographics verified. Admitting dx: CVS, see MRI results and Neurology's note LACE Strata: 1 PCP: Colton Valenzuela Specialists: Manolo Wood (Neurology) Preferred Pharmacy: [facility] Insurance: [facility] A/B only. Noemi from [employer] plans to see the pt. Prescription Benefit: None. Educated the pt on free services such as Good Rx. Pt states that [place] [facility] already applies discounts for the pt. CM to follow LNOK: Jai (Daughter), Edvin (Son) Living Arrangements: Pt lives with her daughter in a 2 story home with one step to enter ADLs/IADLs: Indep. 6-Click score is 23. Pt denies needs or concerns at this time Transportation: Self, children DME: Access to a FWW, Cane, pulse ox, and BP Machine. Pt is currently requiring additional oxygen and may qualify for home oxygen use. A verbal list of local in-network DME companies were provided to the pt at this time. Pt states that he has had a poor experience with [employer] in the past. Pt also states that he does not want to have home oxygen but states that he may be willing to go through [facility] if he were to qualify. CM to follow. HHC/SNF: Denies hx or needs Pt?s goal: Home Plan: Home with daughter, follow for oxygen needs and Rx costs/anticaog. Pt plans to follow up with neurology as an OP. Pt denies the need for any additional resources or therapy including HH or OP Tx. Pt states that he feels safe with this plan and denies any further questions or concerns at this time. CM to follow. Anum De La Cruz RN, CM
--- NOTE | 2025-04-19 13:19 | DS.PCM_ITS ---
Providers Date of Admission: 04/18/25 Date of Discharge: 04/19/25 Primary Care Physician: Dr. Colton Valenzuela, DO Consultations 04/18/25 10:52 Consult: Batting Machine Operator Insulation / Pulmonary Medicine Routine Consulting Provider: [facility] Reason for Consult: stroke for thrombolytic administration EMERGENT Consult: Yes MD Notified: Yes Date Notified: 04/18/25 Time Notified: 10:52 Method of Notification: Answering Service Comments:: Consult may be done in ED or ICU 04/18/25 11:26 Consult: Tele-Neurology Routine Consulting Provider: [facility] Reason for Consult: Acute Stroke Post Tenecteplase administration EMERGENT Consult: No Notified: Yes Date Notified: 04/18/25 Time Notified: 10:34 Method of Notification: Answering Service Method of Consult:: Telemedicine Nursing Unit Staff Notify [facility] of Tele-Neurology Consult: Yes Reason For Visit: CVA Diagnosis Discharge Diagnosis (1) Stroke: Status: Acute Code(s): I63.9 - Cerebral infarction, unspecified Plan Patient is a 69-year-old gentleman who presented with sudden onset of right- sided weakness and paresthesias slurred speech and dysarthria. On assessment of acute CVA made patient did receive TNK admitted to the intensive care unit for further management 1. Acute ischemic CVA ? Patient presented with right-sided weakness and paresthesias, slurred speech and dysarthria. Patient did receive TNK. Admitted to the intensive care unit where patient is being managed per protocol. Patient was started on nicardipine drip to keep blood pressure under guideline goals. Also started on atorvastatin. Ordered 2D echo and an MRI has been ordered 24 hours post TNK. [facility] : Patient seen denies any focal deficit no numbness. Scheduled to undergo post TNK 24-hour MRI evaluation. ? MRI reports as below There is abnormal increased T2 and FLAIR signal most severe in the deep white matter in the right and left posterior occipital periventricular region, consistent with chronic ischemic change. There is focal restricted diffusion in the right superior parietal lobe on a single image only, , which may be artifact secondary to motion. Clinical correlation is recommended. Mucosal thickening is visible in the floor of the left maxillary sinus. There is fluid signal in a portion of the right mastoid air cells. 2D echo no significant LV dysfunction or valvular abnormality noted. Patient was seen in consultation by [facility] recommended for patient to be discharged on aspirin and statin therapy for patient to follow-up in the neurology clinic 4 to 6 weeks following discharge Patient was expected to stay for at least 2 midnights however given his rapid improvement decision was made to discharge patient a day following his admission 2. Essential hypertension ? Patient blood pressure control within guidelines 3. Dyslipidemia ?Patient is on statin therapy, continued at home dose 4. Seizure disorder ? Patient has remained seizure-free for several years. Patient is on phenytoin?continue home dose 5. Class III obesity with BMI of 47.2 ? Complicating care weight loss advised 6. DVT prophylaxis ? SCDs only given the fact the patient did receive TNK Time spent in the patient's overall evaluation,decision-making process, review of diagnostic data, adjustment of management, discussion with other providers, nursing nursing and ancillary staff involved in patient's care documentation, 40 Minutes Medications at Discharge Home Medications albuterol sulfate 90 mcg/actuation aerosol inhaler 2 puff inhalation Q4H PRN shortness of breath or wheezing 04/18/25 fluticasone 100 mcg-salmeterol 50 mcg/dose blistr powdr for inhalation 1 inh inhalation Q12H md ordered 04/18/25 furosemide 20 mg tablet 20 mg PO QODAY md ordered 04/18/25 furosemide 40 mg tablet 40 mg PO QODAY md ordered 04/18/25 lisinopril 20 mg-hydrochlorothiazide 25 mg tablet 1 tab PO DAILY 04/18/25 phenytoin sodium extended 100 mg capsule 600 mg PO QPM 04/18/25 aspirin 81 mg tablet,delayed release 81 mg PO DAILY #90 tabs 04/19/25 atorvastatin 80 mg tablet 80 mg PO QHS #90 tabs 04/19/25 Physical Exam Narrative GENERAL: cooperative HEENT: Atraumatic; normocephalic EYES; Anicteric, Normal Conjunctiva NECK; supple, normal thyroid, RESPIRATORY: Diminished to auscultation CARDIOVASCULAR: Regular S1 S2, GI: soft, normoactive bowel sounds, : No Renal angle tenderness; EXTREMITIES: No edema, no clubbing, MUSCULOSKELETAL: no muscle wasting NEURO: Awake; no lateralizing signs. SKIN: No Rash PSYCH; Flat affect Weight / BMI Weight Weight: 152.4 kg Body Mass Index (BMI) 48.1 ABG / Lab / Microbiology Data 04/19/25 04:54 04/19/25 04:54 Laboratory: Laboratory Results - last 24 hr 04/19/25 04:54: WBC 9.8, RBC 5.05, Hgb 15.7, Hct 47.7, MCV 94.5 H, MCH 31.1, MCHC 32.9, RDW Std Deviation 52.4 H, RDW Coeff of Theodore 15.1 H, Plt Count 176, MPV 10.4, Immature Gran % (Auto) 0.800, Neut % (Auto) 69.8, Lymph % (Auto) 16.5 L, M patrica % (Auto) 10.5 H, Eos % (Auto) 2.0, Baso % (Auto) 0.4, Absolute Neuts (auto) 6.8, Absolute Lymphs (auto) 1.61, Nucleated RBC % 0, Sodium 138, Potassium 3.8, Chloride 101, Carbon Dioxide 26.9, Anion Gap 10, BUN 14, Creatinine 0.82, Estim Creat Clear Calc 126.44, Est GFR (MDRD) Non-Af 96, BUN/Creatinine Ratio 16.7, G lucose 114 H, Calcium 8.9, Phosphorus 3.0, Magnesium 2.1, TSH 2.320 Radiography Diagnostic Testing: Radiology Impression Echocardiogram 04/18/25 11:26 Interpretation Summary Technically difficult exam, however, in the images visualized, no significant LV dysfunction or valvular abnormality noted. The study was technically difficult. Limited views were obtained. Ordering Physician: Erasmo Nelson Referring Physician: Colton Valenzuela Performed By: Chelle Mondragon, HANY, RVT Brain MRI 04/19/25 10:00 IMPRESSION: There is abnormal increased T2 and FLAIR signal most severe in the deep white matter in the right and left posterior occipital periventricular region, consistent with chronic ischemic change. There is focal restricted diffusion in the right superior parietal lobe on a single image only, , which may be artifact secondary to motion. Clinical correlation is recommended. Mucosal thickening is visible in the floor of the left maxillary sinus. There is fluid signal in a portion of the right mastoid air cells. [facility] Inst[facility] Discharge Activity: Return to Normal Activity Call your doctor if you observe: Fever of 101 or Higher, Shortness of breath, Fainting spells and Chest pain DC O2, CPAP, BIPAP Needs Home O2 Discharge instructions: No Meaningful Use Info Meaningful Use Meaningful Use Diagnoses (Choose all that apply): Ischemic CVA CVA Therapy Assessed for PT,OT and/or ST?: Yes Ischemic Stroke Antithrombotic order at d/c?: Yes Dx of Atrial fib/flutter?: No Statins at discharge?: Yes If patient is 75 or younger, pt will be discharged on HIGH intensity statin.: Y es Primary Dx Acute Ischemic CVA?: Yes IV thrombolytic ordered during stay?: Yes Discharge Plan Admission Admit Date/Time: 04/18/25 10:32 Attending Provider: Erasmo Nelson Primary Care Provider: Colton Valenzuela Consulting Providers: Jose Maria Cha; Jong John; James Gaffney; Deyvi Salguero; Erasmo Caballero; Sukhdev Sawant; Husam Uribe; Farrah Okeefe; Clem Fernández; Jovon Colunga; Ashok Kohler; Shira Briceno; Roxanne Pan; Danilo,Shannen; Garrick,Davin; Jackiea,Nehemias; Manjit,Víctor; Mario,Corey; Jose Low; Christine Marie; Gopal Abbasi; Lam Ryan; Nico Dumont; Toby Shepard; Blanca Busby NP; Dulce Maria Belcher; Conrad Howell; Bryan Kemp; Luda Flores; Francesca Moore; Alana Samuel; Arturo,René; Scott,Yadi; Pablo Putnam; Hema Mendez; Obinna Jacobsen; María Weems; Christopher Quiñones; Maggie Desir; Jaylan Cash; Mayur Franks; Kirill Zeng; Alexys Clark; Nathan Vargas; Sofya Richards; Sacha Greco Discharge Orders/Prescriptions Prescriptions: New atorvastatin 80 mg Tablet 80 mg PO QHS Qty: 90 0RF aspirin 81 mg tablet,delayed release (DR/EC) 81 mg PO DAILY Qty: 90 0RF Continued furosemide 40 mg tablet 40 mg PO QODAY phenytoin sodium extended 100 mg capsule 600 mg PO QPM lisinopril-hydrochlorothiazide 20-25 mg tablet 1 tab PO DAILY furosemide 20 mg tablet 20 mg PO QODAY fluticasone propion-salmeterol 100-50 mcg/dose blister with device 1 inh inhalation Q12H albuterol sulfate 90 mcg/actuation HFA aerosol inhaler 2 puff INHALATION Q4H PRN (Reason: shortness of breath or wheezing) Discontinued atorvastatin 10 mg tablet 10 mg PO QPM Referrals / Follow Up: Azael Sandhu MD [Non-Staff -Ordering Privileges] - Within 1 Month Colton Valenzuela DO [Primary Care Provider] - Within 2 Weeks Disposition Disposition (needs filled in before D/C Order can be placed): Home, Self Care Charges/Coding Visit Charges Inpatient E&M: 64871 Disch Hosp >30min
--- NOTE | 2025-04-19 14:14 | CASEMGMT ---
Addendum entered by Monet De La Cruz 04/19/25 14:43: Pt's RN states to this RN CM that the pt qualifies for 3L with exertion. RN CM to the pt's room at this time. Pt states that he will not use the oxygen at home and denies the need. Pt states that he has things to do and cannot be on oxygen. Pt states, My oxygen levels are fine at home. Pt reports that he has a working pulse oximeter. At this time, the pt refuses to go home on additional oxygen. Pt is aware that he can follow up with his PCP or pulmonary medicine in the case that he would like to be reevaluated for home oxygen needs. Pt states understanding and denies any further questions or concerns at this time. Pt states that he is ready for DC. Pt's RN updated. Original Note: Pt has an order for DC placed. TC to [employer] who states that the pt's Rxs total 27$. This bond underwriter to the pt's room at this time. Pt agreeable to the cost and denies needs. This RN CM reviewed potential oxygen needs with the pt again. Pt is still hesitant about this but states that he is at least willing to go through the home oxygen qualification testing. Pt's RN notified and plans to walk the pt. CM to follow.
--- NOTE | 2025-04-19 14:23 | CASEMGMT ---
Social Work Pt admitted for CVA/TIA. SW completed PHQ9 with score of 3 indicating minimal depression. Pt denies any needs regarding mental health at this time. MILI May
== END 2025-04-19 14:48 | disposition home or self-care (01) | DRG 62 ==
LOC: ED 10:36 → ICU 10:43
PROVIDERS: Admitting Provider Internal Medicine; Emergency Provider Emergency Medicine; Visit Provider Internal Medicine
DX: I63.9 Cerebral infarction, unspecified (principal); Z68.42 Body mass index [BMI] 45.0-49.9, adult; G81.91 Hemiplegia, unspecified affecting right dominant side; G40.909 Epilepsy, unspecified, not intractable, without status epilepticus; I10 Essential (primary) hypertension; J45.909 Unspecified asthma, uncomplicated; E78.5 Hyperlipidemia, unspecified; E66.813 Obesity, class 3; R29.703 NIHSS score 3; Z79.899 Other long term (current) drug therapy; Z79.51 Long term (current) use of inhaled steroids
CPT/HCPCS: 70450; 70496; 70498; 70551; 80048; 80061; 83036; 83735; 84100; 84443; 84484; 85025; 85610; 85730; 93005; 93306; 97161; 97803; 99252; 99285; J3101; Q9957; Q9967; A4216; C8929; G0463